=== PATIENT | female | born 1965 | race Caucasian/White ===

== ENCOUNTER 2017-06-24 17:32 | Outpatient (RCR) | payer OTHER, SELFPAY ==
--- NOTE | 2017-06-24 18:05 | HP.PTEVAL_ITS ---
Patient's Visit Information ALCIDES RUIZ is a 51 year old F referred to Physical Therapy by Francisco Cowan with a diagnosis of vertigo. Date of Evaluation: 06/24/17 Physical Therapist: Blue Crenshaw DPT, OC - Visit Plan Frequency: 1x/Week Duration: 2-4 Weeks Plan: weekly x 2-4 for positional treatment and ex - Subjective Subjective: Vertigo for a few years on and off. This episode going on two months. It is spinning and lightheaded. Much of time. Lying down makes it worse, reasding paper makes it worse. Getting up from lying or looking up. Spinning lasts a couple minutes. Feels goofy for a while and has to squint eyes after. otherwise feels pretty good. Works third shift, moving is a problem. 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 One house all night up and about. Off one time a couple months ago for dizzyness. Hobbies include walking and swimming and chores are all interrupted. - Objective c/s arom WFL. + R hallpike with up torsional nystagmus. treated with R Doc. - HD after. - Goals Goal 1:: abolish dizzyness to sleep better and function. Goal Time Frame: 2-4 Weeks - Rehabilitation Potential Physical Therapy Diagnosis: R post canal BPPV Rehabilitation Potential: Good - Anticipated Interventions Patient/Client Instruction: Educate patient on: Condition Other: decrease dizzyness Comment: positional treat and ex. Other: to abolish dizzyness. Thank you for the opportunity to evaluate your patient. For Medicare and Medicare HMO plans, please review the plan of care and approve it. It will need to be FAXED BACK to us at [phone] for Medicare purposes. Please let me know if there are questions or concerns regarding this plan of care. Physician Signature: Date:
--- NOTE | 2017-07-01 15:20 | HP.PTDCSUM ---
HP - PT D/C Summary It has been my pleasure to treat ALCIDES RUIZ under orders from Francisco Cowan, for the diagnosis of vertigo for a total of 1 visit(s). Discharge Date: 07/01/17 Please see the following information for a summary of their discharge status. - Subjective Subjective: Pt cancelled appointment stating she has not had any vertigo lately and does not need more therapy. - Objective Objective/Function: Pt cancelled her f/u stating that she is not having any more problems with the vertigo. - Goals Goal 1:: abolish dizzyness to sleep better and function. Goal Progress: Goal Met - Plan Plan: D/C - D/C Information Discharge Comments: Pt cancelled f/u as she is not having vertigo any longer. If there are questions or concerns regarding this patient's physical therapy, please feel free to call me at [phone]. Thank you for the referral of this patient. Sincerely, Blue Crenshaw, DPT, OC
== END 2017-06-24 19:00 | disposition home or self-care (01) ==
LOC: PT 17:32
PROVIDERS: Family Provider Family Medicine; PCP Family Medicine; Visit Provider Physician Assistant
DX: R42 Dizziness and giddiness (principal)
CPT/HCPCS: 97161

== ENCOUNTER 2018-07-18 03:36 | Emergency (ER) | payer OTHER, SELFPAY ==
[2018-07-18 03:37] VITALS: BP 170/74; PULSE 90; RESP 16; RESP 18; TEMP 36.3; O2SAT 99; BMI 41.1
--- NOTE | 2018-07-18 03:52 | CT_ITS ---
STUDY: CT ABDOMEN AND PELVIS WITHOUT CONTRAST REASON FOR EXAM: Female, 52 years old. Right flank pain and leukocytosis RADIATION DOSAGE (If Supplied By Facility): CTDIvol = ( 24.09 ) mGy, DLP = ( 1251.61 ) mGycm TECHNIQUE: Transaxial images were obtained from the dome of the diaphragm to the symphysis pubis without oral contrast, and without intravenous contrast. Sagittal and coronal images were reconstructed. Individualized dose optimization techniques were used for this CT. COMPARISON: None. FINDINGS: The visualized lung bases are unremarkable. The visualized portions of the heart are within normal limits. Small hiatal hernia. Hepatomegaly. The gallbladder is contracted. Normal spleen. Normal pancreas. Normal bilateral adrenal glands. 10 mm stone in the proximal right ureter at the level of the ureteropelvic junction with changes of mild acute obstructive uropathy. Small bilateral nonobstructing renal stones. Normal visualized stomach. Normal small intestine. There are multiple colonic diverticula consistent with diverticulosis. The appendix is visualized and appears normal. Normal abdominal aorta. Normal inferior vena cava. Normal retroperitoneum. Normal urinary bladder. Retroverted uterus. Normal abdominal wall. Normal osseous structures. CT/Abdomen/Pelvis without Cont IMPRESSION: 10 mm stone in the proximal right ureter at the level of the ureteropelvic junction with changes of mild acute obstructive uropathy. Electronically Signed: Ivan Styles MD at 5:51 EST Tel , Service support ,
[2018-07-18] MEDS: 0.9% Normal Saline 1,000 ML 1000 ML IV (04:07)
[2018-07-18] MEDS: Ondansetron 4 MG/2 ML Vial IV (04:07)
[2018-07-18] MEDS: Ketorolac 30 MG/ML Syringe IV (04:10)
[2018-07-18 04:58] VITALS: BP 155/66; PULSE 87; RESP 18; TEMP 36.8; O2SAT 95
[2018-07-18 05:09] LABS: Absolute Lymphocyte Count 2.39 X10^3/ul (0.83-4.51); Absolute Neutrophil Count 8.7 X10^3/uL (2.0-7.7); Basophil# 0.03 X10^3/uL; Basophil% 0.2 % (0-1); Eosinophil# 0.15 X10^3/uL; Eosinophils% 1.2 % (0-5); Hematocrit 42.6 % (37-47); Hemoglobin 13.8 g/dl (12.0-15.0); Lymphocyte # 2.39 X10^3/ul (4.0); Lymphocyte % 19.6 % (19-41); Mean Corp Hgb Conc 32.4 g/gl (32-36); Mean Corpuscular Hgb 30.1 pg (27.0-32.0); Mean Corpuscular Volume 92.8 fL (81-99); Mean Platelet Vol. 10.5 fl (6.2-12.0); Monocyte# 0.85 X10^3/uL; Neutrophil # 8.71 X10^3/uL (2.7-7.7); Neutrophil % 71.7 % (47-70); Platelet Count 352 K/mm3 (150-450); RBC Distribution Width SD 46.9 fl (35.1-43.9); Red Blood Count 4.59 M/mm3 (4.2-5.4); White Blood Count 12.2 K/mm3 (4.4-11.0)
[2018-07-18 05:10] LABS: POSITIVE COUNT NO; POSITIVE DIFFERENTIAL NO; POSITIVE MORPHOLOGY NO
[2018-07-18 05:21] LABS: ALB/GLOB Ratio 0.8 RATIO (0.9-2.4); AST(SGOT) 38 U/L (15-37); Alanine Aminotransfer ALT/SGPT 39 U/L (13-56); Albumin, Serum 3.6 g/dL (3.2-5.0); Alkaline Phosphatase 137 U/L (45-117); Anion Gap 10 (5-15); BUN 13 mg/dL (7-18); BUN/Creat Ratio 15.1 RATIO (10-20); Calcium,Total 9.2 mg/dL (8.5-10.1); Chloride 105 mmol/L (98-107); Creatinine, Serum 0.86 mg/dL (0.55-1.02); EST Glomerular Filtration Rate 74 mL/min (>60); Est Glom Filt Rate - Afr Amer 89 mL/min (>60); Estimated Creatinine Clearance 70.42 ml/min; Globulin 4.7 g/dL (2.2-4.2); Glucose 170 mg/dL (74-106); Lipase 354 U/L (73-393); Potassium 5.2 mmol/L (3.5-5.1); Protein, Total 8.3 g/dL (6.4-8.2); Sodium Level 139 mmol/L (136-145)
[2018-07-18 05:22] LABS: Pregnancy, Serum, hCG Quali. NEGATIVE Negative (0-9 Nonpreg)
[2018-07-18 06:16] LABS: Bacteria 0 SEEN /hpf (None Seen); Mucous, Urine 0 SEEN /hpf (<or=2+)
[2018-07-18 06:18] LABS: Glucose, Dipstick Normal (Normal); Ketone-Dipstick Negative (Negative); Leukocyte Esterase-Dipstick 25 /ul (Negative); Nitrite-Dipstick Negative (Negative); Occult Blood-Urine 250 /ul (Negative); Protein-Dipstick 30 mg/dl (Negative); Urine Bilirubin Dipstick Negative (Negative); Urine Urobilinogen Normal (Normal)
[2018-07-18 06:24] VITALS: BP 130/58; PULSE 78; RESP 16; TEMP 36.6; O2SAT 95
[2018-07-18 06:32] LABS: Color, Urine Yellow (Yellow); Urine Clarity Sl Cldy (Clear)
[2018-07-18 06:34] LABS: Red Blood Cells-Urine 50-100 SEEN /hpf (0-5); Squamous Epithelial Cells - UA 0-5 SEEN /hpf (5-10); White Blood Cells 0-5 SEEN /hpf (0-5)
[2018-07-18 06:35] LABS: Amorphous Sediment 1+ URATE
--- NOTE | 2018-07-18 06:45 | ED.VISSUMM ---
- ER Visit Summary Date of Service: 07/18/18 Chief Complaint: Right flank pain History of Present Illness: The patient is a 52 F with right flank pain. Symptoms started about a week ago and then got better. They recurred today. She had some hematuria. No fevers. Patient has a remote history of kidney stones but never had any type of procedures or instrumentation for them. She also has a history of diverticulitis and has been having some constipation. She is planning to have a colonoscopy on Friday. Physical Examination: Afebrile and vital signs unremarkable. Patient appears uncomfortable but not toxic or in distress. Heart regular rate. No respiratory distress. Right flank tender to palpation. Skin appears normal. Test Results: White count 12.2. Potassium 5.2 but hemolyzed. Glucose 170. Alkaline phosphatase 137 and AST 38. Lipase normal. HCG negative. Urinalysis does not show signs of infection. CT flank showed a 10 mm stone in the right proximal ureter with mild obstructive findings. Emergency Department Course and Treatment: Patient was treated with fluids, Zofran, and Toradol. Pain had improved to 4 out of 10. She would like to go home. I spoke with Dr. Chen and he said he can follow-up with her in the office on Friday. The patient was given a prescription for Flomax, Percocet, and Zofran. Precautions were discussed. Return for any issues. Follow-up on Friday. Patient was advised that she will not be able to have her colonoscopy on Friday and she should have the kidney stone addressed first. Treatment Plan: As above Disposition: Discharge Impression: 1. Right ureteral colic This note was generated with [employer] dictation software. It may contain incorrect words, spelling, and punctuation that were not noted in review of the chart prior to signing ED Disposition - Plan for ED Patient: Referrals: Ivan Florez MD [Primary Care Provider] -
--- NOTE | 2018-07-18 06:48 | ED.DCSUM_ITS ---
- ER Visit Summary Date of Service: 07/18/18 Chief Complaint: Right flank pain History of Present Illness: The patient is a 52 F with right flank pain. Symptoms started about a week ago and then got better. They recurred today. She had some hematuria. No fevers. Patient has a remote history of kidney s tones but never had any type of procedures or instrumentation for them. She also has a history of diverticulitis and has been having some constipation. She is planning to have a colonoscopy on Friday. Physical Examination: Afebrile and vital signs unremarkable. Patient appears uncomfortable but not toxic or in distress. Heart regular rate. No respiratory distress. Right flank tender to palpation. Skin appears normal. Test Results: White count 12.2. Potassium 5.2 but hemolyzed. Glucose 170. Alkaline phosphatase 137 and AST 38. Lipase normal. HCG negative. Urinalysis does not show signs of infection. CT flank showed a 10 mm stone in the right proximal ureter with mild obstructive findings. Emergency Department Course and Treatment: Patient was treated with fluids, Zofran, and Toradol. Pain had improved to 4 out of 10. She would like to go home. I spoke with Dr. Chen and he said he can follow-up with her in the office on Friday. The patient was given a prescription for Flomax, Percocet, and Zofran. Precautions were discussed. Return for any issues. Follow-up on Friday. Patient was advised that she will not be able to have her colonoscopy on Friday and she should have the kidney stone addressed first. Treatment Plan: As above Disposition: Discharge Impression: 1. Right ureteral colic This note was generated with [employer] dictation software. It may contain incorrect words, spelling, and punctuation that were not noted in review of the chart prior to signing ED Disposition - Plan for ED Patient: Referrals: Ivan Florez MD [Primary Care Provider] -
--- NOTE | 2018-07-18 06:48 | ED.DEP ---
ED Disposition - Plan for ED Patient: Instructions: ED Stone Renal W Colic Prescriptions: Oxycodone HCl/Acetaminophen [Percocet 5/325] 1 tab PO Q6H PRN PRN 3 Days #12 tab PRN Reason: Pain Ondansetron [Zofran Odt] 4 mg PO Q8H PRN PRN #10 tab PRN Reason: Nausea Tamsulosin HCl [Flomax] 0.4 mg PO DAILY #7 cap Referrals: Esteban Chen MD [STAFF PHYSICIAN] -
[2018-07-18 06:54] VITALS: BP 144/56; PULSE 81; RESP 16; O2SAT 94
--- NOTE | 2018-07-18 06:55 | ED.RN ---
THIS NURSE REVIEWED D/C INSTRUCTIONS WITH PT. PT VERBALIZED UNDERSTANDING OF INSTRUCTIONS. IV D/C. IV CATHETER INTACT. PT TOLERATED WELL. PT DENIES FURTHER NEEDS OR QUESTIONS AT THIS TIME
== END 2018-07-18 06:56 | disposition home or self-care (01) ==
PROVIDERS: Emergency Provider Emergency Medicine; Family Provider Family Medicine; PCP Family Medicine
DX: N23 Unspecified renal colic (principal); Z87.442 Personal history of urinary calculi; K59.00 Constipation, unspecified; E11.9 Type 2 diabetes mellitus without complications; Z72.0 Tobacco use
CPT/HCPCS: 74176; 80053; 81001; 83690; 84703; 85025; 96361; 96374; 96375; 99285; J7030; J2405

== ENCOUNTER 2018-07-22 12:59 | Day surgery (SDC) | payer OTHER, SELFPAY ==
--- NOTE | 2018-07-21 12:14 | HP.PCM_ITS ---
History and Physical Date of Admission: 07/22/18 I have ureteral stone. HPI: ALCIDES RUIZ is a 52 year-old female patient who was referred by KAMI CHESTER M.D. who is here for ureteral stone. The problem is on the right side. This is not her first kidney stone. She is currently having flank pain and back pain. She denies having groin pain, nausea, vomiting, fever, and chills. Pain is occuring on the right side. She has never had surgical treatment for calculi in the past. She has not caught a stone in her urine strainer since her symptoms began. The stone is at The ureteral pelvic junction. The stone is 10 mm . plan for Right Ureteroscopy and laser stone, and stent. ALLERGIES: None MEDICATIONS: Flomax Crestor Humalog Losartan Potassium Omeprazole Oxycodone Hcl Tresiba Flextouch U-100 100 unit/ml (3 ml) insulin pen Victoza 2-Leonard Zofran PSH: None PSH Notes: Had tubal , 1989. Rodney Streeter side fallopian tube removed. NON- PSH: Back Surgery (Unspecified) Colonoscopy Foot Surgery Tonsillectomy PMH: Calculus of kidney NON- PMH: Type 2 diabetes mellitus without complications Immunizations: None FAMILY HISTORY: Breast Cancer - Runs in Family Colon Cancer - Runs in Family Diabetes II - Runs in Family SOCIAL HISTORY: Marital Status: Preferred Language: Nigerian; Ethnicity: Not Or ; Race: White Current Smoking Status: Patient smokes. Tobacco Use Assessment Completed: Used Tobacco in last 30 days? Smoking cessation counseling was provided. Does not use smokeless tobacco. Social Drinker. Does not use drugs. Drinks 1 caffeinated drink per day. Has not had a blood transfusion. 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 REVIEW OF SYSTEMS: Constitutional: Patient denies fever, chills, weight loss, and weight gain. Eyes: Patient denies blurry vision, cataracts, and glaucoma. Ears, Nose, Mouth, Throat: Patient denies hearing loss, sinus infections, and sleep apnea. Cardiovascular: Patient denies chest pains, swollen ankles, irregular heartbeat, and pacemaker/defib. Respiratory: Patient denies shortness of breath, wheezing, oxygen, and cpap machine. Gastrointestinal: Patient denies abdominal pain, diarrhea, constipation, nausea, and vomiting. Genitourinary: Patient reports urinary retention, painful urination, blood in the urine, and history of stones. Patient denies frequent urination, get up at night to void, leakage of urine, frequent uti's, difficulty starting stream, weak stream/scanty, and bedwetting. Musculoskeletal: Patient denies back pain, sore muscles, and gout. Integumentary/Skin: Patient denies rash, skin cancer, and chronic itching. Neurological: Patient denies falling/unsteady, paralysis, and stroke/tia. Hematologic/Lymphatic: Patient denies abnormal bleeding, blood transfusion, swollen lymph nodes, deep venous thrombosis, and pulmonary embolism. VITAL SIGNS: 07/20/2018 01:37 PM Weight 245 lb / 111.13 kg Height 65 in / 165.1 cm BP 134/66 mmHg BMI 40.8 kg/m? - BMI Counseling was provided. MULTI-SYSTEM PHYSICAL EXAMINATION: Constitutional: Well-nourished. No physical deformities. Normally developed. Good grooming. Neck: Neck symmetrical, not swollen. Normal tracheal position. Respiratory: No labored breathing, no use of accessory muscles. Cardiovascular: Normal temperature, normal extremity pulses, no swelling, no varicosities. Lymphatic: No enlargement of neck, axillae, groin. Skin: No paleness, no jaundice, no cyanosis. No lesion, no ulcer, no rash. Neurologic / Psychiatric: Oriented to time, oriented to place, oriented to person. No depression, no anxiety, no agitation. Gastrointestinal: No mass, no tenderness, no rigidity, non obese abdomen. Eyes: Normal conjunctivae. Normal eyelids. Ears, Nose, Mouth, and Throat: Left ear no scars, no lesions, no masses. Right ear no scars, no lesions, no masses. Nose no scars, no lesions, no masses. Normal hearing. Normal lips. Musculoskeletal: Normal gait and station of head and neck. 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 The possible need for further surgical procedures was discussed with the patient. The possible need for postoperative treatments including further surgical procedures, chemotherapy, immunotherapy, radiation therapy, and others was discussed with the patient. The possibility that this operative procedure might not to cure the underlying disease, that micrometastatic disease might already be present, and that this underlying disease might result in the of the patient was discussed. The general risks of the operative procedure and the perioperative period were discussed with the patient at length and in detail including swelling, pain, nausea, vomiting, fever, chills, infection, wound infection, sepsis, renal failure, internal or external bleeding, intraoperative bowel, organ or vascular injuries, postoperative formation of scar tissue, the need for blood transfusions, deep venous thrombosis or blood clots, pulmonary embolus, pneumonia, respiratory failure, heart attack, stroke, he and others. All of the patient's questions were answered and he voiced an understanding of these risks, benefits and possible complications. The patient gave fully informed consent to proceed with the procedure. Notes: plan for right ureteroscopy and laser stone and stent.
[2018-07-22] VITALS (7 sets, daily range): BP systolic 121–154; BP diastolic 63–79; PULSE 61–79; RESP 16; TEMP 36.2–36.8; O2SAT 94–100; BMI 40.9
[2018-07-22 13:40] LABS: Bedside Glucose 159 mg/dL (70-110)
[2018-07-22] MEDS: Cefazolin 2 GM in 0.9% Normal Saline 100 ML IV (14:29)
[2018-07-22] MEDS: Ketorolac 15 MG/ML Vial IV (14:36)
--- NOTE | 2018-07-22 14:36 | DCINST_ITS ---
Discharge Diet: Light diet - advance as tolerated Discharge Activity: Return to Normal Activity Call your doctor if your incision/area has: Continuous Slow Oozing, Sudden Increased Bleeding, Increased Pain/ Swelling, Increased Redness Call your doctor if you observe: Fever of 101 or Higher Suture Line Care: Avoid Pulling/Pushing, Avoid Pinching/Bending Instructions: Treating Kidney Stones: Ureteroscopic Stone Removal, Ureteral Stents Allergies/Adverse Reactions: Allergies lansoprazole [From Prevacid] Allergy (Verified 07/22/18 13:14) Rash Medications to take at Discharge Insulin Lispro [Humalog] 15 unit SC BREAKFAST 01/21/17 Insulin Lispro [Humalog] 25 unit SC DINNER 01/21/17 Insulin Lispro [Humalog] 25 unit SC LUNCH 01/21/17 Losartan Potassium 25 mg PO DAILY 01/21/17 Insulin Degludec [Tresiba Flextouch U-100] 65 units SQ DAILY 07/18/18 Liraglutide [Victoza 2-Leonard] 1.8 mg SQ DAILY 07/18/18 Ondansetron [Zofran Odt] 4 mg PO Q8H PRN PRN #10 tab 07/18/18 Rosuvastatin Calcium [Crestor] 10 mg PO DAILY 07/18/18 Tamsulosin HCl [Flomax] 0.4 mg PO DAILY #7 cap 07/18/18 Omeprazole [Prilosec] 20 mg PO DAILY 07/21/18 Acetaminophen [Tylenol Extra Strength] 500 mg PO Q4H PRN PRN #20 tablet 07/22/18 Ibuprofen 600 mg PO Q6H PRN PRN #20 tablet 07/22/18 Primary Care Physician: Ivan Florez MD [Primary Care Provider] - Test Results: Test results from this visit will be discussed in further detail at your follow- up appointment, if applicable. Please Follow Up With: Esteban Chen MD When: please call to make an appointment.
[2018-07-22] MEDS: Lubricating Jelly 60 GM Tube 30 GM TOPICAL (14:45)
--- NOTE | 2018-07-22 15:19 | PCM.OPRPT ---
Report of Operation Date of Procedure: 07/22/18 Pre-Operative Diagnosis: Right renal calculi Post-Operative Diagnosis: Same Surgery/Procedure Performed:: Cystoscopy, balloon dilation of the right ureter, right ureteroscopy, right retrograde pyelogram, laser lithotripsy of a stone in the right kidney. Interpretation of retrograde pyelogram. Placement of the right stent. Description of Surgical Findings:: 52-year-old female who presented to the office from the outside hospital with an obstructing stone in the proximal ureter and up in the kidney saw the patient in the office recommend we proceed with laser lithotripsy laser the stone little tiny pieces. 52-year-old female taken back to the operating at the smooth induction of general anesthesia she was placed supine on the table and then a dorsolithotomy position, the vaginal area and urethra were all prepped and draped in usual sterile fashion, went into the bladder with a 21 Colombian rigid cystourethroscope, the entire length of the urethra was normal the bladder was slightly tilted down with a slight cystocele but otherwise normal no tumors or stones seen within the bladder I then cannulated the right ureter orifice with a Glidewire advanced this up to the kidney over the Glidewire I then balloon dilated the right ureteral orifice. Used a 10 cc syringe and 1 cc of contrast to balloon dilate the right ureteral orifice. I then went up into the right ureter and encountered the stone that was in the proximal ureter but migrated back up into the midpole of the right kidney I then used a 400 ?m laser fiber and laser the stone little tiny pieces this took quite some time because of quite a large stone in an quite hard. After lasering the stone successfully to swallow fragments that all should pass I did a retrograde pyelogram could see the delineation of the kidney no damage or injury to the kidney or ureter advance a wire through the ureteroscope was a 0.035 wire. Once the wires in place then I backloaded off the wire with the ureteroscope and then over the wire I placed a stent there was a 4.5 Colombian by 26 cm stent left the string of the stent for easy extraction in the near future patient's bladder was drained she was taken of anesthesia and taken back to PACU good condition she will follow-up in a week to remove the stent with an x-ray. Type of Anesthesia:: General Drains: stent right side - Admit VTE Documentation VTE Present on Admission: No VTE Mechan Device Prophylaxis: SCD's
[2018-07-22 15:41] LABS: Bedside Glucose 130 mg/dL (70-110)
== END 2018-07-22 17:29 | disposition home or self-care (01) ==
LOC: SDC 13:00 → AC 13:02
PROVIDERS: Family Provider Family Medicine; PCP Family Medicine; Referring Provider Urology; Visit Provider Urology
PROC: 0TJ98ZZ Inspection of Ureter, Via Natural or Artificial Opening Endoscopic (ICD-10-PCS; CPT 52352; principal; 2018-07-22 14:45)
DX: N20.1 Calculus of ureter (principal); E11.9 Type 2 diabetes mellitus without complications; K57.30 Diverticulosis of large intestine without perforation or abscess without bleeding; K21.9 Gastro-esophageal reflux disease without esophagitis; F17.210 Nicotine dependence, cigarettes, uncomplicated
CPT/HCPCS: 52353; 76000; 82962; J7120; C1769; J2405

== ENCOUNTER → 2018-07-27 13:47 | Outpatient (CLI) | payer OTHER, SELFPAY ==
[2018-07-22 13:15] VITALS: BMI 40.9
--- NOTE | 2018-07-27 13:55 | RAD_ITS ---
STUDY: X-RAY - ABDOMEN/PELVIS REASON FOR EXAM: Female, 52 years old. Kidney stone TECHNIQUE: Two AP supine views of the abdomen and pelvis. COMPARISON: CT dated 07/18/2018 FINDINGS: There is a right ureteral stent in place. There are subcentimeter calcifications overlying the lower pole of the right kidney which likely represent renal stones. There is no bowel obstruction. There is air and stool to the level of the rectum. The visualized osseous structures are within normal limits. RAD/Abdomen Single View IMPRESSION: Subcentimeter calcifications overlying the lower pole the right kidney which likely represent renal stones. Right ureteral stent in place. No bowel obstruction. Electronically Signed: Raza Cook, at 14:36 EST Tel , Service support ,
== END ==
LOC: RAD 13:47
PROVIDERS: Family Provider Family Medicine; PCP Family Medicine; Referring Provider Nurse Practitioner Adult Health; Visit Provider Nurse Practitioner Adult Health
DX: N20.0 Calculus of kidney (principal)
CPT/HCPCS: 74018

== ENCOUNTER 2018-07-27 20:50 | Emergency (ER) | payer OTHER, SELFPAY ==
[2018-07-22 13:15] VITALS: BMI 40.9
[2018-07-27 20:52] VITALS: BP 166/89; PULSE 90; RESP 18; TEMP 37.2; O2SAT 99; BMI 41.3
--- NOTE | 2018-07-27 21:03 | CT_ITS ---
STUDY: CT ABDOMEN AND PELVIS WITHOUT CONTRAST REASON FOR EXAM: Female, 52 years old. Kidney stone RADIATION DOSAGE (If Supplied By Facility): CTDIvol = ( 24.18 ) mGy, DLP = ( 1268.52 ) mGycm TECHNIQUE: Transaxial images were obtained from the dome of the diaphragm to the symphysis pubis without oral contrast, and without intravenous contrast. Sagittal and coronal images were reconstructed. Individualized dose optimization techniques were used for this CT. COMPARISON: July 18, 2018 FINDINGS: The visualized lung bases are unremarkable. The visualized portions of the heart are within normal limits. Normal liver. Normal gallbladder and extrahepatic biliary system. Normal spleen. Normal pancreas. Normal bilateral adrenal glands. There are now 3 stones in the right kidney up to 5 mm likely from the previously noted stone at the right UPJ which has been fragmented. Right hydronephrosis with right hydroureter Stable nonobstructing 3 mm stone in the left kidney. Small hiatal hernia. Normal small intestine. Mild diverticulosis of the colon. The appendix is visualized and appears normal. Normal abdominal aorta. Normal inferior vena cava. Normal retroperitoneum. Normal urinary bladder. Normal uterus. Normal abdominal wall. Normal osseous structures. CT/Abdomen/Pelvis without Cont IMPRESSION: Small hiatal hernia. Mild colonic diverticulosis. Bilateral renal calculi. Right hydronephrosis and hydroureter. No obstructive right ureteral stone. Electronically Signed: Dayton Gloria DO at 22:22 EST Tel [phone], Service support ,
[2018-07-27] MEDS: 0.9% Normal Saline 1,000 ML 250 ML IV (21:24)
[2018-07-27] MEDS: Ondansetron 4 MG/2 ML Vial IV (21:24)
[2018-07-27] MEDS: Morphine 4 MG/ML Syringe IV (21:24)
[2018-07-27 21:34] LABS: Absolute Lymphocyte Count 2.72 X10^3/ul (0.83-4.51); Absolute Neutrophil Count 8.1 X10^3/uL (2.0-7.7); Basophil# 0.03 X10^3/uL; Basophil% 0.3 % (0-1); Eosinophils% 2.5 % (0-5); Hematocrit 44.5 % (37-47); Hemoglobin 14.1 g/dl (12.0-15.0); Lymphocyte # 2.72 X10^3/ul (4.0); Lymphocyte % 22.9 % (19-41); Mean Corp Hgb Conc 31.7 g/gl (32-36); Mean Corpuscular Hgb 30.5 pg (27.0-32.0); Mean Corpuscular Volume 96.1 fL (81-99); Mean Platelet Vol. 10.2 fl (6.2-12.0); Monocyte# 0.72 X10^3/uL; Monocyte% 6.1 % (0-10); Neutrophil # 8.09 X10^3/uL (2.7-7.7); Neutrophil % 67.9 % (47-70); Platelet Count 349 K/mm3 (150-450); RBC Distribution Width CV 13.8 % (11.6-14.6); RBC Distribution Width SD 48.1 fl (35.1-43.9); Red Blood Count 4.63 M/mm3 (4.2-5.4); White Blood Count 11.9 K/mm3 (4.4-11.0)
[2018-07-27 21:35] LABS: POSITIVE COUNT NO; POSITIVE DIFFERENTIAL NO; POSITIVE MORPHOLOGY NO
[2018-07-27 21:48] LABS: Anion Gap 9 (5-15); BUN 13 mg/dL (7-18); Calcium,Total 8.6 mg/dL (8.5-10.1); Chloride 106 mmol/L (98-107); Creatinine, Serum 0.93 mg/dL (0.55-1.02); EST Glomerular Filtration Rate 68 mL/min (>60); Est Glom Filt Rate - Afr Amer 82 mL/min (>60); Estimated Creatinine Clearance 65.12 ml/min; Glucose 207 mg/dL (74-106); Potassium 4.1 mmol/L (3.5-5.1); Sodium Level 137 mmol/L (136-145)
[2018-07-27 22:33] LABS: Color, Urine Yellow (Yellow); Glucose, Dipstick Normal (Normal); Ketone-Dipstick Negative (Negative); Leukocyte Esterase-Dipstick 100 /ul (Negative); Nitrite-Dipstick Negative (Negative); Occult Blood-Urine 250 /ul (Negative); Protein-Dipstick 100 mg/dl (Negative); Urine Bilirubin Dipstick Negative (Negative); Urine Clarity Cloudy (Clear); Urine Urobilinogen Normal (Normal)
[2018-07-27 22:40] LABS: Squamous Epithelial Cells - UA 0-5 SEEN /hpf (5-10)
[2018-07-27 22:41] LABS: Hyaline Cast 0-5 SEEN /lpf (0-5)
[2018-07-27 22:43] LABS: Bacteria RARE /hpf (None Seen); Mucous, Urine 1+ /hpf (<or=2+); White Blood Cells 10-25 SEEN /hpf (0-5)
[2018-07-27 22:44] LABS: Red Blood Cells-Urine 50-100 SEEN /hpf (0-5)
--- NOTE | 2018-07-27 23:11 | ED.DCSUM_ITS ---
- ER Visit Summary Date of Service: 07/27/18 Chief Complaint: Flank pain History of Present Illness: The patient is a [address] Chen and Dr. Florez. Patient had a right ureteral stent placed [address] Chen. The stent was removed by the nurse practitioner today. Patient reports appro ximately 2 hours ago she had the abrupt onset of right flank pain that is similar to the pain she had with kidney stones. She describes a sharp pains 10- 10 severity. Is worsened by nothing relieved by nothing. She had nausea without vomiting. No diarrhea. She has had dysuria and hematuria. Physical Examination: Vitals: Stable. Afebrile. General: Well-nourished and well-developed. Head: Normocephalic atraumatic. Neck: Supple, no lymphadenopathy. No JVD. Nontender. Cardiovascular: Regular rate and rhythm. No murmurs. Respiratory: No respiratory distress. Clear to auscultation bilaterally. Abdominal: Soft, nontender, nondistended, normal bowel sounds. No guarding, rebound, or peritoneal signs. Back: Nontender. Extremities: Nontender, no edema. Skin: Normal color, no rash. Neurologic: Alert and oriented ?3. Cranial nerves II through XII are intact. Normal strength and sensation. Psych: Normal affect. Test Results: CT flank shows bilateral renal calculi. She has right hydro ureter/nephrosis. No obstructing stone. CBC is more for a white count of 11.9. Chem-7 more for glucose 207. UA shows leukocytes, blood, 10-25 white blood cells, 50-100 red blood cells, and rare bacteria. Emergency Department Course and Treatment: Patient had an IV placed. She was given morphine and Zofran IV. States that when she went into urinate she passed a significant amount of foreign material that was the size of sand and her symptoms have essentially resolved. Treatment Plan: Patient was discussed with Dr. Chen. She will be discharged with Percocet. Her urine was sent for culture. She is instructed to follow-up Dr. Chen in a week for another exam. Return to the emergency department for any worsening symptoms. Disposition: To home in improved and stable condition. Impression: 1. Right flank pain. 2. 5 days status post right ureteral stent. This note was generated with [employer] software. It may contain incorrect words, spelling, and punctuation that were not noted in review of the chart prior to signing ED Disposition - Plan for ED Patient: Disposition: Home or Assisted Living Instructions: ED Stone Renal W Colic Prescriptions: Oxycodone HCl/Acetaminophen [Percocet 5/325] 1 tablet PO Q6H PRN PRN 3 Days #12 tablet PRN Reason: Pain Ondansetron [Zofran Odt] 4 mg PO Q8H PRN PRN #10 tablet PRN Reason: Nausea Referrals: Esteban Chen MD [STAFF PHYSICIAN] - 1 Week
[2018-07-27] MEDS: Ibuprofen 400 MG Tablet 800 MG PO (23:40)
[2018-07-27] MEDS: oxyCODONE 5 MG Tablet PO ×2 (23:41)
[2018-07-27] MEDS: Ondansetron ODT 4 MG Tablet PO ×2 (23:42)
[2018-07-27 23:46] VITALS: BP 125/56; PULSE 80; RESP 18; O2SAT 95
== END 2018-07-27 23:46 | disposition home or self-care (01) ==
LOC: ED 21:08
PROVIDERS: Emergency Provider Emergency Medicine; Family Provider Family Medicine; PCP Family Medicine
DX: R10.9 Unspecified abdominal pain (principal); N13.2 Hydronephrosis with renal and ureteral calculous obstruction; Z98.890 Other specified postprocedural states; E11.9 Type 2 diabetes mellitus without complications; F17.210 Nicotine dependence, cigarettes, uncomplicated; Z87.442 Personal history of urinary calculi
CPT/HCPCS: 74176; 80048; 81001; 85025; 87086; 87088; 96361; 96374; 96375; 99284; J7030; A4216; J2405

== ENCOUNTER → 2018-12-30 | Outpatient (CLI) | payer OTHER, SELFPAY ==
[2019-01-03 03:05] LABS: Clam <0.10 kU/L (Class 0); Codfish <0.10 kU/L (Class 0); Corn <0.10 kU/L (Class 0); Egg, White 0.19 kU/L (Class 0/I); Milk (Cow) <0.10 kU/L (Class 0); Peanut <0.10 kU/L (Class 0); SCALLOP <0.10 kU/L (Class 0); Shrimp <0.10 kU/L (Class 0); Soybean <0.10 kU/L (Class 0); Walnut, (Food) <0.10 kU/L (Class 0); Wheat <0.10 kU/L (Class 0)
[2019-01-03 07:43] LABS: SESAME SEED <0.10 kU/L (Class 0)
[2019-01-03 12:59] LABS: Immunoglobulin E 27 IU/mL (6-495)
[2019-01-04 12:07] LABS: Alternaria tenuis <0.10 kU/L (Class 0); Ash, White <0.10 kU/L (Class 0); Aspergillus fumigatus <0.10 kU/L (Class 0); Bermuda Grass <0.10 kU/L (Class 0); Birch <0.10 kU/L (Class 0); Black Walnut <0.10 kU/L (Class 0); Cat Hair / Dander,Stand <0.10 kU/L (Class 0); Cedar, Mountain <0.10 kU/L (Class 0); Cladosporium herbarum <0.10 kU/L (Class 0); Cockroach, American <0.10 kU/L (Class 0); Cottonwood <0.10 kU/L (Class 0); D farinae Mite <0.10 kU/L (Class 0); D pteronyssinus <0.10 kU/L (Class 0); Dog Epithelia <0.10 kU/L (Class 0); Elm, American White <0.10 kU/L (Class 0); Immunoglobulin E 29 IU/mL (6-495); Maple/Box Elder <0.10 kU/L (Class 0); Mulberry, White <0.10 kU/L (Class 0); Oak, White <0.10 kU/L (Class 0); Pecan <0.10 kU/L (Class 0); Penicillium Notatum <0.10 kU/L (Class 0); Pigweed, Rough <0.10 kU/L (Class 0); Ragweed, Short/Common <0.10 kU/L (Class 0); Russian Thistle <0.10 kU/L (Class 0); Sheep Sorrel <0.10 kU/L (Class 0); Sycamore, American <0.10 kU/L (Class 0); Timothy Grass <0.10 kU/L (Class 0)
[2019-01-04 17:30] LABS: Mouse Urine <0.10 kU/L (Class 0)
== END | disposition home or self-care (01) ==
LOC: LAB 09:47
PROVIDERS: Family Provider Family Medicine; PCP Family Medicine; Referring Provider Otolaryngology Otolaryngology/Facial Plastic Surgery; Visit Provider Otolaryngology Otolaryngology/Facial Plastic Surgery
DX: T78.40XA Allergy, unspecified, initial encounter (principal)
CPT/HCPCS: 36415; 82785; 86003

== ENCOUNTER 2019-05-01 22:49 | Emergency (ER) | payer OTHER, SELFPAY ==
[2019-05-01 22:50] VITALS: BP 161/81; PULSE 88; RESP 16; TEMP 36.8; O2SAT 99; BMI 41.2
--- NOTE | 2019-05-01 23:13 | ED.DCSUM_ITS ---
- ER Visit Summary Date of Service: 05/01/19 Chief Complaint: Abdominal pain History of Present Illness: The patient is a 53 F presenting with abdominal pain. She states this started yesterday. She has pain in her bilateral lower quadrants worse on the left. She has history of previous diverticulitis and states this feels similar. She has nausea with no vomiting. She has had constipation. She denies fever or chills. Denies chest pain or shortness of breath. Denies other complaints. Physical Examination: Vitals are stable. Patient is afebrile. Alert no acute distress. HEENT exam is unremarkable. Neck is supple. Lungs are clear and equal bilaterally. Heart is regular rate and rhythm. Abdomen is soft LLQ tenderness with no rebound or guarding Extremities are unremarkable. Skin is warm and dry. No focal neurologic deficit. Remainder of exam is unremarkable. Emergency Department Course and Treatment: Patient was given IV fluids, morphine, Zofran. CBC shows white count 11.4. Chemistries show glucose 176. Alk phos 127, AST 11. Urinalysis unremarkable. CT abdomen pelvis shows diverticulitis with possible development of early abscess within the superior aspect of the sigmoid at the level of the wall, not drainable at this time. Clinical correlation recommended and if indicated, follow-up CT to evaluate progression recommended. On reevaluation, patient is feeling improved and would prefer discharge home. Discussed with Dr. Rodriguez. Patient will follow-up as an outpatient. She is given Cipro, Flagyl. She is advised to return to ED if she has worsening complaints. Disposition: Discharge home Impression: Diverticulitis This note was generated with [employer] dictation software. It may contain incorrect words, spelling, and punctuation that were not noted in review of the chart prior to signing ED Disposition - Plan for ED Patient: Instructions: Diverticulitis Prescriptions: Ciprofloxacin [Cipro] 500 mg PO BID #14 tab Prescription Printed metroNIDAZOLE [Flagyl] 500 mg PO Q8H #21 tab Prescription Printed Hydrocodone Bitart/Apap 5-325 [[place] 5MG-325MG] 1 tab PO Q6H PRN PRN 3 Days #10 tab PRN Reason: Pain Prescription Printed Referrals: Rodríguez Rodriguez MD [STAFF PHYSICIAN] - Ivan Florez MD [Primary Care Provider] -
[2019-05-01] MEDS: Morphine 4 MG/ML Syringe IV (23:51)
[2019-05-01] MEDS: Ondansetron 4 MG/2 ML Vial IV (23:51)
[2019-05-01 23:52] LABS: Absolute Lymphocyte Count 2.25 X10^3/uL (0.83-4.51); Absolute Neutrophil Count 8.2 X10^3/uL (2.0-7.7); Basophil# 0.03 X10^3/uL; Basophil% 0.3 % (0-1); Eosinophil# 0.22 X10^3/uL; Eosinophils% 1.9 % (0-5); Hemoglobin 13.3 g/dL (12.0-15.0); Lymphocyte # 2.25 X10^3/ul (4.0); Lymphocyte % 19.8 % (19-41); Mean Corp Hgb Conc 33.3 g/dL (32-36); Mean Corpuscular Hgb 30.4 pg (27.0-32.0); Mean Corpuscular Volume 91.5 fL (81-99); Mean Platelet Vol. 10.1 fl (6.2-12.0); Monocyte# 0.64 X10^3/uL; Monocyte% 5.6 % (0-10); NRBC Flagged by Analyzer 0 % (0-5); Neutrophil # 8.18 X10^3/uL (2.7-7.7); Platelet Count 316 K/mm3 (150-450); RBC Distribution Width CV 13.2 % (11.6-14.6); RBC Distribution Width SD 45.1 fl (35.1-43.9); Red Blood Count 4.37 M/mm3 (4.2-5.4); White Blood Count 11.4 K/mm3 (4.4-11.0)
[2019-05-01 23:58] LABS: Red Blood Cells-Urine 0 SEEN /hpf (0-5)
[2019-05-02 00:07] LABS: ALB/GLOB Ratio 0.8 RATIO (0.9-2.4); AST(SGOT) 11 U/L (15-37); Alanine Aminotransfer ALT/SGPT 21 U/L (13-56); Albumin, Serum 3.3 g/dL (3.2-5.0); Alkaline Phosphatase 127 U/L (45-117); Anion Gap 5 (5-15); BUN 10 mg/dL (7-18); BUN/Creat Ratio 13.2 RATIO (10-20); Calcium,Total 8.9 mg/dL (8.5-10.1); Chloride 108 mmol/L (98-107); Creatinine, Serum 0.76 mg/dL (0.55-1.02); EST Glomerular Filtration Rate 85 mL/min (>60); Est Glom Filt Rate - Afr Amer 103 mL/min (>60); Globulin 3.9 g/dL (2.2-4.2); Glucose 176 mg/dL (74-106); Lipase 184 U/L (73-393); Potassium 4.2 mmol/L (3.5-5.1); Protein, Total 7.2 g/dL (6.4-8.2); Sodium Level 140 mmol/L (136-145)
[2019-05-02 00:14] LABS: Color, Urine Yellow (Yellow); Glucose, Dipstick Normal (Normal); Ketone-Dipstick Negative (Negative); Occult Blood-Urine 10 /ul (Negative); Specific Gravity, Urine 1.015 (1.002-1.030); Urine Bilirubin Dipstick Negative (Negative); Urine Clarity Clear (Clear)
[2019-05-02 00:15] LABS: Leukocyte Esterase-Dipstick 25 /ul (Negative); Nitrite-Dipstick Negative (Negative); Protein-Dipstick Negative (Negative); Urine Urobilinogen Normal (Normal); Urine pH 6.5 (5.0 - 8.0)
[2019-05-02 00:16] LABS: Bacteria RARE /hpf (None Seen); Mucous, Urine RARE /hpf (<or=2+); Squamous Epithelial Cells - UA 0-5 SEEN /hpf (5-10); White Blood Cells 0-5 SEEN /hpf (0-5)
[2019-05-02 02:22] VITALS: BP 131/59; PULSE 75; RESP 18; O2SAT 97
--- NOTE | 2019-05-02 02:43 | ED.DEP ---
ED Disposition - Plan for ED Patient: Instructions: Diverticulitis Prescriptions: Ciprofloxacin [Cipro] 500 mg PO BID #14 tablet metroNIDAZOLE [Flagyl] 500 mg PO Q8H #21 tablet Hydrocodone Bitart/Apap 5-325 [[place] 5MG-325MG] 1 tablet PO Q6H PRN PRN 3 Days #10 tablet PRN Reason: Pain Referrals: Ivan Florez MD [Primary Care Provider] - Rodríguez Rodriguez MD [STAFF PHYSICIAN] -
[2019-05-02] MEDS: Ciprofloxacin 500 MG Tablet PO (03:03)
[2019-05-02] MEDS: metroNIDAZOLE 500 MG Tablet PO (03:04)
[2019-05-02 03:07] VITALS: BP 136/66; PULSE 71; RESP 16; O2SAT 97
--- NOTE | 2019-05-02 23:10 | CT_ITS ---
We are attempting to reach an attending provider to discuss findings. An addendum with communication details will be sent when the communication is complete. STUDY: CT ABDOMEN AND PELVIS WITH CONTRAST REASON FOR EXAM: Female, 53 years old. Lower abdominal pain. RADIATION DOSAGE (If Supplied By Facility): CTDIvol = ( 20.40 ) mGy, DLP = ( 1255.67 ) mGycm TECHNIQUE: Transaxial images were obtained from the dome of the diaphragm to the symphysis pubis without oral contrast. Oral and amp; IV Gastrografin and amp; 100mL Isovue-370 was administered. Sagittal and coronal images were reconstructed. Individualized dose optimization techniques were used for this CT. COMPARISON: 07/27/2018. FINDINGS: There is mild posterior dependent atelectasis, remainder of the lung bases are clear. The visualized portions of the heart are within normal limits. Normal liver. Normal gallbladder and extrahepatic biliary system. Normal spleen. Normal pancreas. Normal bilateral adrenal glands. Normal right kidney. Normal left kidney. Minimal hiatal hernia versus a sequela previous surgery, otherwise normal visualized stomach. Normal small intestine. There is mild diverticulosis more so along the sigmoid. There is inflammatory change surrounding the sigmoid colon, axial images 19 through 100. There is a small lucency measuring approximately 2.1 cm at the superior aspect of the sigmoid which may indicate a subtle early abscess formation. The appendix is visualized and appears normal. There is diffuse atherosclerotic calcification of the abdominal aorta, without a demonstrated aneurysm. Normal inferior vena cava. Normal retroperitoneum. Normal urinary bladder. The uterus is retroflexed otherwise unremarkable. Normal abdominal wall. There are diffuse degenerative changes of the visualized lumbar spine. CT/Abdomen/Pelvis WITH Contrast IMPRESSION: Diverticulitis with possible development of early abscess within the superior aspect of the sigmoid at the level of the wall, not drainable at this time. Clinical correlation recommended and if indicated, follow-up CT to evaluate progression recommended. Electronically Signed: Jenny Cooper MD at 2:17 EST , Service support ,
== END 2019-05-02 03:08 | disposition home or self-care (01) ==
LOC: ED 23:15
PROVIDERS: Emergency Provider Emergency Medicine; Family Provider Family Medicine; PCP Family Medicine
DX: K57.92 Diverticulitis of intestine, part unspecified, without perforation or abscess without bleeding (principal); K59.00 Constipation, unspecified; E11.9 Type 2 diabetes mellitus without complications; Z72.0 Tobacco use; Z87.442 Personal history of urinary calculi
CPT/HCPCS: 74177; 80053; 81001; 83690; 85025; 96374; 96375; 99284; J7040; Q9967; A4216; J2405

== ENCOUNTER → 2020-06-26 14:40 | Outpatient (CLI) | payer OTHER, SELFPAY ==
--- NOTE | 2020-06-26 14:44 | CT_ITS ---
STUDY: CT ABDOMEN AND PELVIS WITHOUT CONTRAST REASON FOR EXAM: Female, 54 years old. ABD /FLANK PAIN, HX [place] RADIATION DOSAGE (If Supplied By Facility): CTDIvol = ( 14.80 ) mGy, DLP = ( 729.75 ) mGycm TECHNIQUE: Transaxial images were obtained from the dome of the diaphragm to the symphysis pubis without oral contrast, and without intravenous contrast. Sagittal and coronal images were reconstructed. Individualized dose optimization techniques were used for this CT. COMPARISON: Comparison is made with prior examination dated 05/02/2019. FINDINGS: The visualized lung bases are unremarkable. The visualized portions of the heart are within normal limits. Normal liver. Partially contracted gallbladder with possible sludge. Normal spleen. Normal pancreas. Normal bilateral adrenal glands. Punctate calcification in the posterior midpole calyx of the right kidney. There are 3 small nonobstructive intrarenal calculi in the lower pole calyx of the left kidney. There is a small hiatal hernia. Normal small intestine. There are scattered colonic diverticula consistent with diverticulosis. The appendix is visualized and appears normal. There is scattered atherosclerotic calcification of the abdominal aorta, without a demonstrated aneurysm. Normal inferior vena cava. Normal retroperitoneum. Normal urinary bladder. Normal abdominal wall. There are degenerative changes of the visualized lumbar spine. CT/Abdomen/Pelvis without Cont IMPRESSION: Stable small bilateral nonobstructive intrarenal calculi. Electronically Signed: Dennis Soria MD at 15:34 EST , Service support ,
== END ==
PROVIDERS: PCP Family Medicine; Referring Provider Nurse Practitioner Adult Health; Visit Provider Nurse Practitioner Adult Health
DX: R31.0 Gross hematuria (principal); N20.0 Calculus of kidney; R10.9 Unspecified abdominal pain
CPT/HCPCS: 74176

== ENCOUNTER 2020-07-15 13:36 | Emergency (ER) | payer OTHER, SELFPAY ==
[2020-07-15 13:36] VITALS: BP 161/77; PULSE 93; RESP 18; TEMP 36.7; O2SAT 97; BMI 42.3
--- NOTE | 2020-07-15 13:50 | CT_ITS ---
EXAM: CT ABDOMEN AND PELVIS WITH INTRAVENOUS CONTRAST CLINICAL INDICATION: LOWER ABD PAIN, HX DIVERTICULITIS TECHNIQUE: Helically acquired images were obtained of the abdomen and pelvis with intravenous contrast. This CT exam was performed using one or more of the following dose reduction techniques: automated exposure control, adjustment of the mA and/or kV according to patient size, and/or use of iterative reconstruction technique. This report was created using [employer] report generation technology. CONTRAST: IV 100mL Isovue-300 COMPARISON: 06/26/2020. FINDINGS: LOWER THORAX: Small hiatal hernia. Lung bases are clear. No cardiomegaly. No significant pericardial effusion. ABDOMEN: LIVER: Unremarkable. Homogeneous. No focal mass. GALLBLADDER AND BILE DUCTS: Unremarkable. No calcified gallstones. No gallbladder distention or wall edema. No intra- or extrahepatic biliary ductal dilation. PANCREAS: Unremarkable. No focal cystic or solid mass. SPLEEN: Unremarkable. Normal size without focal cystic or solid mass. ADRENALS: Unremarkable. No nodules. KIDNEYS AND URETERS: Unremarkable. Normal renal size and position. No hydronephrosis. STOMACH AND BOWEL: Wall thickening of the sigmoid colon with slight pericolonic stranding with a few scattered diverticula (image 88 series 2). No CT evidence of perforation or abscess. No stomach or bowel distention. PELVIS: APPENDIX: No evidence of acute appendicitis. BLADDER: Unremarkable. REPRODUCTIVE: Unremarkable as visualized. No mass. ABDOMEN and PELVIS: INTRAPERITONEAL SPACE: Unremarkable. No ascites or other fluid collection. No free air. BONES/JOINTS: Degenerative changes of the lumbar spine. No suspicious lytic or blastic abnormality. SOFT TISSUES: Unremarkable. No discrete abdominal or pelvic wall hernia. VASCULATURE: Mild atherosclerosis of the abdominal aorta. Abdominal aorta is non-dilated. LYMPH NODES: Unremarkable. No enlarged lymph nodes. CT/Abdomen/Pelvis W IV Cont ONLY IMPRESSION: Sigmoid colon diverticulitis or colitis. Electronically Signed: Kimani Boogie MD ([place]) at 15:06 EST , Service support ,
--- NOTE | 2020-07-15 13:51 | ED.VIS.GEN ---
History of Present Illness Chief Complaint: Abd Pain Informant: Patient Narrative: 54-year-old female with a history of sigmoid diverticulitis presents with lower abdominal pain and constipation since yesterday. No fevers. She has never had diverticular abscess or perforation. She states that she used to get flares several times per year but has not had one for at least 1 year. She is seeing Dr. Rodriguez in the past for this. She states that Cipro and Flagyl typically work well for her. - Past Medical History (1) Chronic back pain Status: Chronic (2) Chronic constipation Status: Chronic (3) Diabetes mellitus, type II Status: Chronic (4) Neuropathy Status: Chronic (5) Obesity (BMI 30-39.9) Status: Chronic Past Medical History - Allergies and Home Meds Allergies/Adverse Reactions: Allergies lansoprazole [From Prevacid] Allergy (Verified 07/15/20 13:38) Rash Primary Care Physician: Ivan Florez MD [Primary Care Provider] - Past Medical History: - - Diverticulitis Surgical History: - - Right salpingectomy, lumbar surgery ?2, right foot surgery, tonsillectomy. Smoking Status: Current every day smoker Drugs: None - Family History Maternal Family History: Reports: Diabetes Paternal Family History: Reports: Diabetes Review of Systems General: Denies: Chills, Fever, Sweats Eyes: Denies: Visual changes - bilaterally, Diplopia ENT: Denies: Rhinorrhea, Sore throat Cardiovascular: Denies: Chest pain, Palpitations Respiratory: Denies: Dyspnea, Cough, Dyspnea on exertion Gastrointestinal: Reports: Abdominal pain, Constipation. Denies: Nausea, Vomiting, Diarrhea, Melena, Hematochezia Genitourinary: Denies: Dysuria, Hematuria, Frequency Musculoskeletal: Denies: Back pain, Extremity Pain Skin: Denies: Rash, Wounds Neurological: Denies: Headache, Weakness, Numbness Physical Exam Vital Signs/Narrative: Vital Signs Temp Pulse Resp BP Pulse Ox 07/15/20 13:36 98.0 F 93 18 161/77 H 97 Inital Vital Signs reviewed: Yes General: Well nourished, Well developed, Obese, No Acute Distress Head: Normocephalic, Atraumatic Eyes: Perrl, EOMI ENT: Moist mucous membranes, No rhinorrhea Neck: Supple, Nontender Cardiovascular: Regular rate, Regular rhythm, No murmurs Respiratory: No distress, CTA bilaterally, Chest nontender Abdomen: Soft, Nondistended, Normal bowel sounds, Tender, Guarding, Rebound tenderness Back: Nontender, Normal Inspection Extremities: Nontender, No edema Skin: Normal color, No rash Neurological: Alert, Oriented x3, Cranial nerves II-XII grossly intact, Normal Strength, Normal Sensation Psychological: Normal affect, Normal Mood Diagnostic/Tx/Re-eval Clinical Impression(s) from Imaging Studies Abdomen/Pelvis CT 07/15/20 13:50 IMPRESSION: Sigmoid colon diverticulitis or colitis. Electronically Signed: Kimani Boogie MD ([place]) at 15:06 EST , Service support , Laboratory Last Values WBC 16.2 K/mm3 (4.4-11.0) H 07/15/20 13:45 RBC 4.65 M/mm3 (4.2-5.4) 07/15/20 13:45 Hgb 14.0 g/dL (12.0-15.0) 07/15/20 13:45 Hct 43.0 % (37-47) 07/15/20 13:45 MCV 92.5 fL (81-99) 07/15/20 13:45 MCH 30.1 pg (27.0-32.0) 07/15/20 13:45 MCHC 32.6 g/dL (32-36) 07/15/20 13:45 RDW Std Deviation 44.1 fl (35.1-43.9) H 07/15/20 13:45 RDW Coeff of Matt 13.1 % (11.6-14.6) 07/15/20 13:45 Plt Count 353 K/mm3 (150-450) 07/15/20 13:45 MPV 10.2 fl (6.2-12.0) 07/15/20 13:45 Immature Gran % (Auto) 0.700 % (0.0-0.9) 07/15/20 13:45 Neut % (Auto) 83.5 % (47-70) H 07/15/20 13:45 Lymph % (Auto) 9.4 % (19-41) L 07/15/20 13:45 [place] % (Auto) 5.1 % (0-10) 07/15/20 13:45 Eos % (Auto) 0.9 % (0-5) 07/15/20 13:45 Baso % (Auto) 0.4 % (0-1) 07/15/20 13:45 Absolute Neuts (auto) 13.5 X10^3/uL (2.0-7.7) H 07/15/20 13:45 Absolute Lymphs (auto) 1.53 X10^3/uL (0.83-4.51) 07/15/20 13:45 Nucleated RBC % 0 % (0-5) 07/15/20 13:45 Sodium 137 mmol/L (136-145) 07/15/20 13:45 Potassium 4.2 mmol/L (3.5-5.1) 07/15/20 13:45 Chloride 109 mmol/L (98-107) H 07/15/20 13:45 Carbon Dioxide 24.0 mmol/L (21.0-32.0) 07/15/20 13:45 Anion Gap 4 (5-15) L 07/15/20 13:45 BUN 11 mg/dL (7-18) 07/15/20 13:45 Creatinine 0.72 mg/dL (0.55-1.02) 07/15/20 13:45 Estim Creat Clear Calc 82.25 ml/min 07/15/20 13:45 Est GFR (MDRD) Af Amer 109 mL/min (>60) 07/15/20 13:45 Est GFR (MDRD) Non-Af 90 mL/min (>60) 07/15/20 13:45 BUN/Creatinine Ratio 15.2 RATIO (10-20) 07/15/20 13:45 Glucose 209 mg/dL (74-106) H 07/15/20 13:45 Calcium 8.7 mg/dL (8.5-10.1) 07/15/20 13:45 Total Bilirubin 0.20 mg/dL (0.20-1.00) 07/15/20 13:45 AST 14 U/L (15-37) L 07/15/20 13:45 ALT 30 U/L (13-56) 07/15/20 13:45 Alkaline Phosphatase 131 U/L (45-117) H 07/15/20 13:45 Total Protein 7.6 g/dL (6.4-8.2) 07/15/20 13:45 Albumin 3.4 g/dL (3.2-5.0) 07/15/20 13:45 Globulin 4.2 g/dL (2.2-4.2) 07/15/20 13:45 Albumin/Globulin Ratio 0.8 RATIO (0.9-2.4) L 07/15/20 13:45 Urine Color Yellow (Yellow) 07/15/20 14:59 Urine Clarity Sl. Cloudy (Clear) 07/15/20 14:59 Urine pH 6.0 (5.0 - 8.0) 07/15/20 14:59 Ur Specific [place] 1.010 (1.002-1.030) 07/15/20 14:59 Urine Protein Negative mg/dl (Negative) 07/15/20 14:59 Urine Glucose (UA) 50 mg/dl (Normal) H 07/15/20 14:59 Urine Ketones Negative mg/dl (Negative) 07/15/20 14:59 Urine Occult Blood Negative /ul (Negative) 07/15/20 14:59 Urine Nitrite Negative (Negative) 07/15/20 14:59 Urine Bilirubin Negative mg/dL (Negative) 07/15/20 14:59 Urine Urobilinogen Normal mg/dl (Normal) 07/15/20 14:59 Ur Leukocyte Esterase Negative /ul (Negative) 07/15/20 14:59 Urine RBC 0 SEEN /hpf (0-5) 07/15/20 14:59 Urine WBC 0 SEEN /hpf (0-5) 07/15/20 14:59 Ur Squamous Epith Cells 0-5 SEEN /hpf (5-10) 07/15/20 14:59 Urine Bacteria RARE /hpf (None Seen) 07/15/20 14:59 Urine Mucus 0 SEEN /hpf (<or=2+) 07/15/20 14:59 - Medical Decision Making Constantly elevated at 16. CT down pelvis demonstrates sigmoid diverticulitis without perforation or abscess. Patient has done well with Cipro and Flagyl in the past and would like to use that today. I will also write for some Percocet and Zofran. Patient given return instructions and notes understanding as well as follow-up. ED Disposition - Plan for ED Patient: Disposition: Home or Assisted Living Diagnosis: Diverticulitis Instructions: ED Diverticulitis Prescriptions: Ciprofloxacin [Cipro] 500 mg PO BID #20 tab Transmission Status: Pending to [facility] metroNIDAZOLE [Flagyl] 500 mg PO Q8H #30 tab Transmission Status: Pending to [facility] Oxycodone HCl/Acetaminophen [Percocet 5/325] 1 tablet PO Q6H PRN PRN 3 Days #12 tablet PRN Reason: Pain Transmission Status: Sent to [facility] Ondansetron [Zofran Odt] 4 mg PO Q6H PRN PRN #10 tab PRN Reason: Nausea Transmission Status: Pending to [facility] Referrals: Ivan Florez MD [Primary Care Provider] - As Needed
[2020-07-15 13:59] LABS: Absolute Lymphocyte Count 1.53 X10^3/uL (0.83-4.51); Absolute Neutrophil Count 13.5 X10^3/uL (2.0-7.7); Basophil# 0.07 X10^3/uL; Basophil% 0.4 % (0-1); Eosinophil# 0.14 X10^3/uL; Eosinophils% 0.9 % (0-5); Lymphocyte # 1.53 X10^3/ul (4.0); Lymphocyte % 9.4 % (19-41); Mean Corp Hgb Conc 32.6 g/dL (32-36); Mean Corpuscular Hgb 30.1 pg (27.0-32.0); Mean Corpuscular Volume 92.5 fL (81-99); Mean Platelet Vol. 10.2 fl (6.2-12.0); Monocyte# 0.82 X10^3/uL; Monocyte% 5.1 % (0-10); NRBC Flagged by Analyzer 0 % (0-5); Neutrophil # 13.52 X10^3/uL (2.7-7.7); Neutrophil % 83.5 % (47-70); Platelet Count 353 K/mm3 (150-450); RBC Distribution Width CV 13.1 % (11.6-14.6); RBC Distribution Width SD 44.1 fl (35.1-43.9); Red Blood Count 4.65 M/mm3 (4.2-5.4); White Blood Count 16.2 K/mm3 (4.4-11.0)
[2020-07-15 14:15] LABS: ALB/GLOB Ratio 0.8 RATIO (0.9-2.4); AST(SGOT) 14 U/L (15-37); Alanine Aminotransfer ALT/SGPT 30 U/L (13-56); Albumin, Serum 3.4 g/dL (3.2-5.0); Alkaline Phosphatase 131 U/L (45-117); Anion Gap 4 (5-15); BUN 11 mg/dL (7-18); BUN/Creat Ratio 15.2 RATIO (10-20); Calcium,Total 8.7 mg/dL (8.5-10.1); Chloride 109 mmol/L (98-107); Creatinine, Serum 0.72 mg/dL (0.55-1.02); EST Glomerular Filtration Rate 90 mL/min (>60); Est Glom Filt Rate - Afr Amer 109 mL/min (>60); Estimated Creatinine Clearance 82.25 ml/min; Globulin 4.2 g/dL (2.2-4.2); Glucose 209 mg/dL (74-106); Potassium 4.2 mmol/L (3.5-5.1); Protein, Total 7.6 g/dL (6.4-8.2); Sodium Level 137 mmol/L (136-145)
[2020-07-15 15:04] LABS: Mucous, Urine 0 SEEN /hpf (<or=2+); Red Blood Cells-Urine 0 SEEN /hpf (0-5); White Blood Cells 0 SEEN /hpf (0-5)
[2020-07-15 15:05] LABS: Color, Urine Yellow (Yellow); Glucose, Dipstick 50 mg/dl (Normal); Ketone-Dipstick Negative (Negative); Leukocyte Esterase-Dipstick Negative /ul (Negative); Nitrite-Dipstick Negative (Negative); Occult Blood-Urine Negative /ul (Negative); Protein-Dipstick Negative (Negative); Urine Bilirubin Dipstick Negative (Negative); Urine Clarity Sl. Cloudy (Clear); Urine Urobilinogen Normal (Normal)
[2020-07-15] MEDS: Ondansetron 4 MG/2 ML Vial IV (15:12)
[2020-07-15] MEDS: Morphine 4 MG/ML Syringe IV (15:12)
[2020-07-15 15:15] LABS: Squamous Epithelial Cells - UA 0-5 SEEN /hpf (5-10)
[2020-07-15 15:16] LABS: Bacteria RARE /hpf (None Seen)
== END 2020-07-15 15:37 | disposition home or self-care (01) ==
PROVIDERS: Emergency Provider Emergency Medicine; PCP Family Medicine
DX: K57.32 Diverticulitis of large intestine without perforation or abscess without bleeding (principal); E66.9 Obesity, unspecified; F17.200 Nicotine dependence, unspecified, uncomplicated; K59.00 Constipation, unspecified; M54.9 Dorsalgia, unspecified; G89.29 Other chronic pain; Z83.3 Family history of diabetes mellitus; E11.40 Type 2 diabetes mellitus with diabetic neuropathy, unspecified
CPT/HCPCS: 74177; 80053; 81001; 85025; 96374; 96375; 99284; J7030; Q9967; A4216; J2405

== ENCOUNTER 2020-10-23 13:23 | Emergency (ER) | payer OTHER, SELFPAY ==
[2020-10-23 13:23] VITALS: BP 160/73; PULSE 93; RESP 18; TEMP 36.1; O2SAT 97; BMI 40.6
--- NOTE | 2020-10-23 13:36 | CT_ITS ---
STUDY: CT ABDOMEN AND PELVIS WITH CONTRAST REASON FOR EXAM: Female, 55 years old. LLQ pain, eval diverticulitis RADIATION DOSAGE (If Supplied By Facility): CTDIvol = ( 17.07 ) mGy, DLP = ( 1216.08 ) mGycm TECHNIQUE: Transaxial images were obtained from the dome of the diaphragm to the symphysis pubis without oral contrast. IV 100mL Isovue-370 was administered. Sagittal and coronal images were reconstructed. Individualized dose optimization techniques were used for this CT. COMPARISON: CT abdomen and pelvis 07/15/2020 FINDINGS: The visualized lung bases are unremarkable. The visualized portions of the heart are within normal limits. There is hepatomegaly with diffuse hepatic enlargement Measuring up to 22.4 cm. Normal gallbladder and extrahepatic biliary system. Normal spleen. Normal pancreas. Normal bilateral adrenal glands. Normal right kidney. Normal left kidney. Normal visualized stomach. Normal small intestine. There is stable sigmoid diverticulosis and sigmoid wall thickening with trace pericolonic inflammation or stranding, similar to prior exam. No perforation or abscess. The appendix is visualized and appears normal. Mild aortobiiliac atherosclerotic disease. Normal inferior vena cava. Normal retroperitoneum. Collapsed urinary bladder. The uterus is retroverted. Normal abdominal wall. Normal osseous structures. CT/Abdomen/Pelvis W IV Cont ONLY IMPRESSION: Stable sigmoid wall thickening with trace pericolonic inflammation may represent mild sigmoid diverticulitis. There is no perforation or abscess. Colonoscopy, if not already performed, is recommended once clinically possible to exclude underlying mass. Hepatomegaly. Electronically Signed: Valentino Monge MD at 15:56 EDT Tel , Service support ,
[2020-10-23 13:41] LABS: Absolute Lymphocyte Count 2.05 X10^3/uL (0.83-4.51); Absolute Neutrophil Count 9.3 X10^3/uL (2.0-7.7); Basophil# 0.05 X10^3/uL; Basophil% 0.4 % (0-1); Eosinophil# 0.18 X10^3/uL; Eosinophils% 1.5 % (0-5); Hematocrit 42.9 % (37-47); Hemoglobin 13.9 g/dL (12.0-15.0); Lymphocyte # 2.05 X10^3/ul (0.83-4.51); Lymphocyte % 16.6 % (19-41); Mean Corp Hgb Conc 32.4 g/dL (32-36); Mean Corpuscular Hgb 29.9 pg (27.0-32.0); Mean Corpuscular Volume 92.3 fL (81-99); Mean Platelet Vol. 10.2 fl (6.2-12.0); Monocyte# 0.71 X10^3/uL; Monocyte% 5.7 % (0-10); NRBC Flagged by Analyzer 0 % (0-5); Neutrophil # 9.31 X10^3/uL (2.7-7.7); Neutrophil % 75.4 % (47-70); Platelet Count 363 K/mm3 (150-450); RBC Distribution Width CV 13.6 % (11.6-14.6); RBC Distribution Width SD 46.4 fl (35.1-43.9); Red Blood Count 4.65 M/mm3 (4.2-5.4); White Blood Count 12.4 K/mm3 (4.4-11.0)
[2020-10-23] MEDS: Ondansetron 4 MG/2 ML Vial IV (13:41)
[2020-10-23] MEDS: Morphine 4 MG/ML Syringe IV (13:41)
--- NOTE | 2020-10-23 13:46 | EDS_ITS ---
HPI History of Present Illness Chief Complaint: Abd Pain Informant: patient Narrative Narrative: Patient is a 55-year-old female with a past medical history of hypertension, diabetes who presents to the [facility] for left lower quadrant abdominal pain. Her symptoms have been present over the past 3 days. She feels like this is similar to her diverticulitis flares. She has been having loose stools. No blood or melanotic stools. She has been nauseous but not vomiting. No fevers, chills or body aches. No radiation of the pain. She describes the pain as an 8 out of 10. No known aggravating relieving factors. It has been constant. She tried taking ibuprofen for this which did not give any relief. She has had some urinary frequency but otherwise no urinary symptoms. No associated back pain. Only previous abdominal surgery was for kidney stone. [facility] Medical History (Updated 10/23/20 @ 16:[address] Steve Dewitt, ) Diverticulitis Tubal ectopic Home Medications insulin lispro [Humalog U-100 Insulin] 15 unit SUBCUT BREAKFAST 01/21/17 [History Last Taken Unknown] insulin lispro [Humalog U-100 Insulin] 25 unit SUBCUT DINNER 01/21/17 [History Last Taken Unknown] insulin lispro [Humalog U-100 Insulin] 25 unit SUBCUT LUNCH 01/21/17 [History Last Taken Unknown] losartan 25 mg PO DAILY 01/21/17 [History Last Taken 01/20/17] Liraglutide [Victoza 2-Leonard] 1.8 mg SQ DAILY 07/18/18 [History Last Taken Unknown] insulin degludec [Tresiba FlexTouch U-100] 65 units SQ DAILY 07/18/18 [History Last Taken Unknown] rosuvastatin 10 mg PO DAILY 07/18/18 [History Last Taken Unknown] omeprazole 20 mg PO DAILY 07/21/18 [History Last Taken Unknown] gabapentin 300 mg PO TID 05/01/19 [History Last Taken Unknown] ciprofloxacin HCl 500 mg PO BID #20 tab 07/15/20 [Rx Last Taken Unknown] metronidazole 500 mg PO Q8H #30 tab 07/15/20 [Rx Last Taken Unknown] ondansetron 4 mg PO Q6H PRN PRN #10 tab 07/15/20 [Rx Last Taken Unknown] amoxicillin-pot clavulanate [Augmentin] 1 tab PO BID 7 Days #14 tab 10/23/20 [Rx Last Taken Unknown] hydrocodone-acetaminophen 1 tab PO Q6H PRN PRN 3 Days #12 tablet 10/23/20 [Rx Last Taken Unknown] ondansetron 4 mg PO Q8H PRN 4 Days #10 tab 10/23/20 [Rx Last Taken Unknown] Allergy/AdvReac Type Severity Reaction Status Date / Time lansoprazole [From Prevacid] Allergy Rash Verified 10/23/20 13:25 Social History Smoking Status: Current every day smoker tobacco type: cigarettes ROS ROS ED Constitutional Constitutional ED: Denies chills or fever(s) Eyes Eyes: Denies change in vision ENT ENT ED: Reports epistaxis and neck pain Cardiovascular Cardiovascular: Denies chest pain or palpitations Respiratory/Chest Respiratory/Chest: Denies cough, dyspnea or dyspnea on exertion Gastrointestinal Gastrointestinal: Reports abdominal pain, diarrhea and nausea; Denies vomiting Genitourinary Genitourinary ED: Denies burning urination or hematuria Musculoskeletal Musculoskeletal: Denies back pain or neck pain Integumentary Denies rash Neurologic Neurologic: Denies dizziness, headache(s) or weakness EXAM Physical Exam Const Vital Signs: 10/23/20 13:23 10/23/20 15:10 Temperature 97 F L Temperature Source Temporal Pulse Rate 93 74 Respiratory Rate 18 16 Blood Pressure 160/73 H 121/57 H Blood Pressure Mean 102 78 Pulse Ox 97 96 Oxygen Delivery Method Room Air Room Air Positive well nourished and well developed General Appearance ED: well developed HEENT Reports normocephalic and head/scalp atraumatic Mouth ED: Yes moist mucous membranes normal Neck full ROM and supple Resp normal respiratory effort, normal air movement, no retractions, no use of acc essory muscles and clear to auscultation bilaterally Effort and Inspection: able to speak in complete sentences; Negative for respiratory distress Auscultation: clear to auscultation bilaterally Cardio regular rate, regular rhythm and no murmurs GI normal to inspection, nondistended, normoactive bowel sounds Palpation: tender LLQ; Negative for guarding Back/Spine normal ROM Extremity normal to inspection and full ROM Neuro oriented x3 and CN's II-XII intact bilaterally Psych mental status grossly normal Skin no rashes or lesions noted MDM MDM MDM Narrative Medical decision making narrative: Patient presents to the ED for left lower quadrant abdominal pain. She does have a history of diverticulitis and feels like this is similar. Upon arrival to the ED vital signs within normal limits. She is a benign physical exam except for mild tenderness to the left lower quadrant. Will check basic lab work along with urinalysis and CT scan abdomen/pelvis. Patient given morphine and Zofran for symptomatic treatment. She did take 2 doses of Flagyl yesterday that she states she had leftover. Patient's white blood cell count is minimally elevated. No significant electrolyte abnormality. Urine does not show any signs of infection. CT scan was concerning for sigmoid diverticulitis. She will be placed on Augmentin. She is given pain management with [place] as well as antiemetic for home symptomatic treatment. She is to follow-up with her PCP. She has had multiple colonoscopies before in the past. Return precautions are reviewed with her, she understands and is agreeable this plan. All questions answered. Lab Data Labs: Laboratory Results - last 24 hr 10/23/20 10/23/20 10/23/20 13:30 13:30 14:50 WBC 12.4 H RBC 4.65 Hgb 13.9 Hct 42.9 MCV 92.3 MCH 29.9 MCHC 32.4 RDW Std Deviation 46.4 H RDW Coeff of Matt 13.6 Plt Count 363 MPV 10.2 Immature Gran % (Auto) 0.400 Neut % (Auto) 75.4 H Lymph % (Auto) 16.6 L [place] % (Auto) 5.7 Eos % (Auto) 1.5 Baso % (Auto) 0.4 Absolute Neuts (auto) 9.3 H Absolute Lymphs (auto) 2.05 Nucleated RBC % 0 Sodium 137 Potassium 4.0 Chloride 106 Carbon Dioxide 25.0 Anion Gap 6 BUN 13 Creatinine 0.83 Estim Creat Clear Calc 70.53 Est GFR (MDRD) Af Amer 93 Est GFR (MDRD) Non-Af 77 BUN/Creatinine Ratio 15.7 Glucose 210 H Calcium 8.9 Total Bilirubin 0.30 AST 34 ALT 43 Alkaline Phosphatase 134 H Total Protein 7.8 Albumin 3.7 Globulin 4.1 Albumin/Globulin Ratio 0.9 Lipase 144 Urine Color Yellow Urine Clarity Clear Urine pH 6.5 Ur Specific [place] 1.010 Urine Protein 15 H Urine Glucose (UA) Normal Urine Ketones Negative Urine Occult Blood 10 H Urine Nitrite Negative Urine Bilirubin Negative Urine Urobilinogen Normal Ur Leukocyte Esterase 25 H Urine RBC 0 SEEN Urine WBC 0 SEEN Ur Squamous Epith Cells 0 SEEN Urine Bacteria 0 SEEN Urine Mucus 0 SEEN Radiography Diagnostic Testing: Radiology Impression Abdomen/Pelvis CT 10/23/20 13:36 IMPRESSION: Stable sigmoid wall thickening with trace pericolonic inflammation may represent mild sigmoid diverticulitis. There is no perforation or abscess. Colonoscopy, if not already performed, is recommended once clinically possible to exclude underlying mass. Hepatomegaly. Electronically Signed: Valentino Monge MD at 15:56 EDT Tel , Service support , Discharge Plan Triage Chief Complaint: Abd Pain ED Provider: Steve Dewitt Dx/Rx/DC Orders Clinical Impression: Diverticulitis Instructions: ED Diverticulitis Prescriptions: New amoxicillin-pot clavulanate [Augmentin] 875-125 mg tablet 1 tab PO BID 7 Days Qty: 14 RF: 0 hydrocodone-acetaminophen 5-325 mg tablet 1 tab PO Q6H PRN PRN (Reason: Pain) 3 Days Qty: 12 RF: 0 ondansetron 4 mg tablet,disintegrating 4 mg PO Q8H PRN (Reason: nausea and vomiting) 4 Days Qty: 10 RF: 0 No Action losartan 25 MG tablet 25 mg PO DAILY RF: 0 insulin lispro [Humalog U-100 Insulin] 100 UNIT/ML cartridge 25 unit subcut DINNER RF: 0 insulin lispro [Humalog U-100 Insulin] 100 UNIT/ML cartridge 25 unit subcut LUNCH RF: 0 insulin lispro [Humalog U-100 Insulin] 100 UNIT/ML cartridge 15 unit subcut BREAKFAST RF: 0 rosuvastatin 10 MG tablet 10 mg PO DAILY RF: 0 insulin degludec [Tresiba FlexTouch U-100] 100 insulin pen 65 units SQ DAILY RF: 0 Liraglutide [Victoza 2-Leonard] 18 Ml 1.8 mg SQ DAILY RF: 0 gabapentin 300 MG capsule 300 mg PO TID RF: 0 metronidazole 500 MG tablet 500 mg PO Q8H Qty: 30 RF: 0 ciprofloxacin HCl 500 MG tablet 500 mg PO BID Qty: 20 RF: 0 ondansetron 4 MG tablet 4 mg PO Q6H PRN PRN (Reason: Nausea) Qty: 10 RF: 0 omeprazole 20 MG capsule 20 mg PO DAILY RF: 0 Primary Care Provider: Ivan Florez Referrals: Ivan Florez MD [Primary Care Provider] - 3-5 Days if not improving Disposition Disposition: Home, self care Discharge Date/Time: 10/23/20 16:15
[2020-10-23 14:00] LABS: ALB/GLOB Ratio 0.9 RATIO (0.9-2.4); AST(SGOT) 34 U/L (15-37); Alanine Aminotransfer ALT/SGPT 43 U/L (13-56); Albumin, Serum 3.7 g/dL (3.2-5.0); Alkaline Phosphatase 134 U/L (45-117); Anion Gap 6 (5-15); BUN 13 mg/dL (7-18); BUN/Creat Ratio 15.7 RATIO (10-20); Calcium,Total 8.9 mg/dL (8.5-10.1); Chloride 106 mmol/L (98-107); Creatinine, Serum 0.83 mg/dL (0.55-1.02); EST Glomerular Filtration Rate 77 mL/min (>60); Est Glom Filt Rate - Afr Amer 93 mL/min (>60); Estimated Creatinine Clearance 70.53 ml/min; Globulin 4.1 g/dL (2.2-4.2); Glucose 210 mg/dL (74-106); Lipase 144 U/L (73-393); Protein, Total 7.8 g/dL (6.4-8.2); Sodium Level 137 mmol/L (136-145)
[2020-10-23 14:58] LABS: Bacteria 0 SEEN /hpf (None Seen); Mucous, Urine 0 SEEN /hpf (<or=2+); Red Blood Cells-Urine 0 SEEN /hpf (0-5); Squamous Epithelial Cells - UA 0 SEEN /hpf (5-10); White Blood Cells 0 SEEN /hpf (0-5)
[2020-10-23 15:07] LABS: Color, Urine Yellow (Yellow); Glucose, Dipstick Normal (Normal); Ketone-Dipstick Negative (Negative); Leukocyte Esterase-Dipstick 25 /ul (Negative); Nitrite-Dipstick Negative (Negative); Occult Blood-Urine 10 /ul (Negative); Protein-Dipstick 15 mg/dl (Negative); Urine Bilirubin Dipstick Negative (Negative); Urine Clarity Clear (Clear); Urine Urobilinogen Normal (Normal); Urine pH 6.5 (5.0 - 8.0)
[2020-10-23] MEDS: HYDROmorphone 0.5 MG/0.5 ML SYRINGE IV (15:07)
[2020-10-23 15:10] VITALS: BP 121/57; PULSE 74; RESP 16; O2SAT 96
[2020-10-23] MEDS: Amox/Clavulanate 875 MG Tablet PO (16:10)
== END 2020-10-23 16:15 | disposition home or self-care (01) ==
PROVIDERS: Emergency Provider Emergency Medicine; PCP Family Medicine
DX: K57.32 Diverticulitis of large intestine without perforation or abscess without bleeding (principal); R16.0 Hepatomegaly, not elsewhere classified; F17.210 Nicotine dependence, cigarettes, uncomplicated; Z87.442 Personal history of urinary calculi; I10 Essential (primary) hypertension; E11.9 Type 2 diabetes mellitus without complications; Z79.4 Long term (current) use of insulin; Z79.899 Other long term (current) drug therapy
CPT/HCPCS: 74177; 80053; 81001; 83690; 85025; 96374; 96375; 99284; Q9967; A4216; J2405

== ENCOUNTER 2021-08-28 20:39 | Emergency (ER) | payer OTHER, SELFPAY ==
[2021-08-28 20:40] VITALS: BP 147/62; PULSE 88; RESP 16; TEMP 35.7; O2SAT 98; BMI 41.1
--- NOTE | 2021-08-28 21:36 | CT_ITS ---
INDICATION: lower abd pain EXAMINATION: CT ABDOMEN AND PELVIS WITH CONTRAST - CT Abdomen And Pelvis W/ Contrast Injection TECHNIQUE: Helically acquired images were obtained of the abdomen and pelvis following IV contrast. A radiation dose optimization technique was used for this scan. IV Contrast dosage and agent: 100 mL of ISOVUE-300. Oral contrast: None. COMPARISON: CT abdomen and pelvis 10/23/2020 FINDINGS: LOWER CHEST: Lung bases are clear. No cardiomegaly or pericardial effusion. LIVER: Homogeneous. No focal mass. GALLBLADDER AND BILIARY TREE: No calcified gallstones. Gallbladder is partially collapsed. No intra- or extrahepatic biliary ductal dilation. PANCREAS: No focal cystic or solid mass. SPLEEN: Normal size without focal cystic or solid mass. ADRENAL GLANDS: No nodules. KIDNEYS, URETERS and BLADDER: Normal renal size and position. No mass. Punctate 2 nonobstructing renal stones inferior pole right kidney, the larger of which measures 4 mm. There is also a punctate, roughly 2 mm stone in the mid right kidney. Bladder is unremarkable. PERITONEUM: No ascites or free air. No other fluid collection. BOWEL: Normal appendix. No abnormally distended bowel loops or air fluid levels. No wall thickening or mass. No focal inflammatory changes. Previously seen sigmoid colon wall thickening no longer exemplified. A few diverticuli are seen in the sigmoid colon. LYMPH NODES: No enlarged mesenteric or retroperitoneal lymph nodes. VESSELS: Aorta is non-dilated. Minimal atherosclerosis. REPRODUCTIVE ORGANS: Within normal limits for the exam. ABDOMINAL WALL: No discrete abdominal or pelvic wall hernia. BONES: No lytic or blastic abnormality. CT/Abdomen/Pelvis W IV Cont ONLY IMPRESSION: No acute intra-abdominal pathology. Nonobstructing bilateral renal stones measuring 4 mm or smaller. Diverticulosis without diverticulitis. Electronically Signed: Antonio Cloud DO at 23:56 EDT ,
--- NOTE | 2021-08-28 21:38 | EDS_ITS ---
HPI HPI - GI History of Present Illness Chief Complaint: Abd Pain Informant: patient Abdominal Pain/Flank Pain Onset: Days Context: Gradual Onset Timing: Continuous Quality: Cramping Location: LLQ Current Severity: Mild Maximum Severity: Mild Nausea/Vomiting/Emesis GI Symptom: Negative for Vomiting Onset: Days Severity: Mild Diarrhea/Melena/Hematochezia GI Symptom: Negative for Diarrhea and Hematochezia Associated Symptoms Associated Symptoms: Positive for Dysuria Narrative Narrative: 55-year-old female history of diverticulitis in the past, diabetes and kidney stones. States that since she has had lower abdominal pain. Was seen by physician volunteer services assistant Karl Abbasi at the [facility] and was started on Augmentin twice daily. States she has been nauseated but no vomiting or diarrhea. Said the pain is no better may be a little worse and she is having pain now with urination. She denies any fever or chills. She denies any prior abdominal surgeries other than ectopic . Prior similar symptoms: Yes Recent Illness/Hospitalization: No PFSH PFSH Medical History (Updated 08/28/21 @ 23:[address] Pino Trevino MD) Diverticulitis Kidney stones Tubal ectopic Home Medications insulin lispro [Humalog U-100 Insulin] 15 unit SUBCUT BREAKFAST 01/21/17 [History Last Taken Unknown] insulin lispro [Humalog U-100 Insulin] 25 unit SUBCUT DINNER 01/21/17 [History Last Taken Unknown] insulin lispro [Humalog U-100 Insulin] 25 unit SUBCUT LUNCH 01/21/17 [History Last Taken Unknown] losartan 25 mg PO DAILY 01/21/17 [History Last Taken 01/20/17] Liraglutide [Victoza 2-Leonard] 1.8 mg SQ DAILY 07/18/18 [History Last Taken Unknown] insulin degludec [Tresiba FlexTouch U-100] 65 units SQ DAILY 07/18/18 [History Last Taken Unknown] rosuvastatin 10 mg PO DAILY 07/18/18 [History Last Taken Unknown] omeprazole 20 mg PO DAILY 07/21/18 [History Last Taken Unknown] gabapentin 300 mg PO TID 05/01/19 [History Last Taken Unknown] ciprofloxacin HCl 500 mg PO BID #20 tab 07/15/20 [Rx Last Taken Unknown] metronidazole 500 mg PO Q8H #30 tab 02/20/21 [Rx Last Taken Unknown] ondansetron 4 mg PO Q6H PRN PRN #10 tab 07/15/20 [Rx Last Taken Unknown] amoxicillin-pot clavulanate [Augmentin] 1 tab PO BID 7 Days #14 tab 10/23/20 [Rx Last Taken Unknown] hydrocodone-acetaminophen 1 tab PO Q6H PRN PRN 3 Days #12 tablet 10/23/20 [Rx Last Taken Unknown] ondansetron 4 mg PO Q8H PRN 4 Days #10 tab 10/23/20 [Rx Last Taken Unknown] Allergy/AdvReac Type Severity Reaction Status Date / Time lansoprazole [From Prevacid] Allergy Rash Verified 08/28/21 20:40 Social History Smoking Status: Current every day smoker tobacco type: cigarettes ROS ROS ED ROS Narrative Abdominal pain. Nausea. Dysuria. Review of Systems ROS Unobtainable: Denies due to encephalopathy Constitutional Constitutional ED: Denies fever(s) ENT ENT ED: Denies ear pain Cardiovascular Cardiovascular: Denies chest pain Respiratory/Chest Respiratory/Chest: Denies cough or dyspnea Gastrointestinal Gastrointestinal: Reports abdominal pain, constipation and nausea; Denies d iarrhea or vomiting Genitourinary Genitourinary ED: Reports dysuria Musculoskeletal Musculoskeletal: Denies myalgias Integumentary Denies rash Neurologic Neurologic: Denies headache(s) Psychiatric Psychiatric: Denies depression Endocrine Endocrinology: Denies polyuria Hematologic/Lymphatic Hematologic/Lymphatic: Denies easy bruising EXAM Physical Exam Narrative Exam Narrative: 55 of female no acute distress vital signs stable afebrile. H EENT exam unremarkable. Metric members. Lungs clear to auscultation. Heart regular rate and rhythm no murmur. Abdomen soft nondistended normal bowel sound s no peritoneal signs. Tenderness primarily in the left lower quadrant. No hernia or mass. No obstruction. No pulsatile mass. Patient moving all 4 extremities. Calves are nontender without edema or cords. Const Vital Signs: 08/28/21 20:40 Temperature 96.2 F L Temperature Source Temporal Pulse Rate 88 Respiratory Rate 16 Blood Pressure 147/62 H Blood Pressure Mean 90 Pulse Ox 98 Oxygen Delivery Method Room Air Positive well nourished, well developed and obese; Negative for cachectic, contractures or unkempt General Appearance ED: well developed and NAD; Negative for unkempt, cachectic, contractures or pallor Nutritional Appearance: obese; Negative for cachectic HEENT Reports moist mucous membranes normocephalic and atraumatic; Negative for trauma or tenderness Eyes PERRL and EOMs intact bilaterally Neck no lymphadenopathy, supple and no JVD General: Negative for tenderness Resp normal respiratory effort and clear to auscultation bilaterally Auscultation: Negative for rales, rhonchi or wheezes Cardio regular rate, regular rhythm, S1 normal heart sound, S2 normal heart sound and no murmurs GI non-distended and no masses; Negative for non-tender Inspection: Negative for abdominal distention Auscultation: normoactive bowel sounds Palpation: soft and tender; Negative for guarding, rigid or rebound tenderness present Back/Spine no CVA tenderness General Back: Negative for CVA tenderness Cervical Spine: Negative for cervical spine tenderness Thoracic Spine / Upper Back: Negative for thoracic spinal tenderness Extremity full ROM General Extremety ED: Negative for edema or tenderness General Extremity: Negative for edema Neuro moves all extremities Sensorium / Orientation: alert, oriented to person, oriented to place and oriented to time; Negative for confused, lethargic or stuporous Motor Exam: strength 5/5 throughout Psych mental status grossly normal and thought process normal Appearance: Negative for unkempt Mood & Affect: Negative for depressed or tearful Skin no wounds General Skin Exam: Negative for jaundice or pallor Lesions: no lesions Rashes: no rashes MDM MDM MDM Narrative Medical decision making narrative: 55-year-old female left lower quadrant abdominal pain. CAT scan labs pending. Differential be diverticulitis versus constipation versus urinary tract infection. She is driving so she will be given Toradol for pain and Zofran for nausea. A liter fluid. Multiple repeat exams patient is doing well. She and I discussed her test results and CAT scan. She will be discharged home with abdominal pain of uncertain etiology. Lab Data Attestation: I reviewed the patient's lab results. Lab results narrative: CBC is unremarkable. White count of 10. H&H 13 and 39. Electrolytes show a gap of 5. Normal BUN and creatinine. Liver enzymes normal. Lipase normal at 210. Urinalysis normal. 5-10 red cells. No infection. CAT scan of the abdomen is read by the radiologist and reviewed by me shows no acute pathology. She has bilateral renal stones. She has diverticulosis. But no acute cause for pain peer Labs: Laboratory Results - last 24 hr 08/28/21 08/28/21 08/28/21 21:55 21:55 23:13 WBC 10.6 RBC 4.37 Hgb 13.3 Hct 39.9 MCV 91.3 MCH 30.4 MCHC 33.3 RDW Std Deviation 44.2 H RDW Coeff of Matt 13.1 Plt Count 324 MPV 10.5 Immature Gran % (Auto) 0.400 Neut % (Auto) 62.3 Lymph % (Auto) 26.6 [place] % (Auto) 6.6 Eos % (Auto) 3.7 Baso % (Auto) 0.4 Absolute Neuts (auto) 6.6 Absolute Lymphs (auto) 2.82 Nucleated RBC % 0 Sodium 140 Potassium 3.8 Chloride 110 H Carbon Dioxide 25.0 Anion Gap 5 BUN 12 Creatinine 0.80 Estim Creat Clear Calc 73.18 Est GFR (MDRD) Af Amer 97 Est GFR (MDRD) Non-Af 80 BUN/Creatinine Ratio 15.1 Glucose 226 H Calcium 8.8 Total Bilirubin 0.20 AST 17 ALT 30 Alkaline Phosphatase 106 Total Protein 6.8 Albumin 3.2 Globulin 3.6 Albumin/Globulin Ratio 0.9 Lipase 210 Urine Color Yellow Urine Clarity Clear Urine pH 5.0 Ur Specific [place] 1.020 Urine Protein 30 H Urine Glucose (UA) 100 H Urine Ketones 5 H Urine Occult Blood 25 H Urine Nitrite Negative Urine Bilirubin Negative Urine Urobilinogen Normal Ur Leukocyte Esterase 25 H Urine RBC 5-10 SEEN Urine WBC 0-5 SEEN Ur Squamous Epith Cells 0 SEEN Calcium Oxalate Crystal 1+ Urine Bacteria 0 SEEN Urine Mucus 0 SEEN Radiography Diagnostic Testing: Clinical Impression(s) from Imaging Studies Abdomen/Pelvis CT 08/28/21 21:36 IMPRESSION: No acute intra-abdominal pathology. Nonobstructing bilateral renal stones measuring 4 mm or smaller. Diverticulosis without diverticulitis. Electronically Signed: Antonio Cloud DO at 23:56 EDT , Discharge Plan Triage Chief Complaint: Abd Pain Other Complaint: Complaint ED Provider: Pino Trevino Dx/Rx/DC Orders Clinical Impression: Abdominal pain, History of diverticulitis, History of diabetes mellitus Instructions: Abdominal Pain Prescriptions: No Action losartan 25 MG tablet 25 mg PO DAILY RF: 0 insulin lispro [Humalog U-100 Insulin] 100 UNIT/ML cartridge 25 unit subcut DINNER RF: 0 insulin lispro [Humalog U-100 Insulin] 100 UNIT/ML cartridge 25 unit subcut LUNCH RF: 0 insulin lispro [Humalog U-100 Insulin] 100 UNIT/ML cartridge 15 unit subcut BREAKFAST RF: 0 rosuvastatin 10 MG tablet 10 mg PO DAILY RF: 0 insulin degludec [Tresiba FlexTouch U-100] 100 insulin pen 65 units SQ DAILY RF: 0 Liraglutide [Victoza 2-Leonard] 18 Ml 1.8 mg SQ DAILY RF: 0 gabapentin 300 MG capsule 300 mg PO TID RF: 0 metronidazole 500 MG tablet 500 mg PO Q8H Qty: 30 RF: 0 ciprofloxacin HCl 500 MG tablet 500 mg PO BID Qty: 20 RF: 0 ondansetron 4 MG tablet 4 mg PO Q6H PRN PRN (Reason: Nausea) Qty: 10 RF: 0 amoxicillin-pot clavulanate [Augmentin] 875-125 mg tablet 1 tab PO BID 7 Days Qty: 14 RF: 0 hydrocodone-acetaminophen 5-325 mg tablet 1 tab PO Q6H PRN PRN (Reason: Pain) 3 Days Qty: 12 RF: 0 ondansetron 4 mg tablet,disintegrating 4 mg PO Q8H PRN (Reason: nausea and vomiting) 4 Days Qty: 10 RF: 0 omeprazole 20 MG capsule 20 mg PO DAILY RF: 0 Primary Care Provider: Ivan Florez Referrals: Ivan Florez MD [Primary Care Provider] - 3-5 Days if not improving Activity Restrictions/Additional Instructions: Your labs and CAT scan did not show specific cause for your pain. Follow-up with your primary care provider. Return if worse. Disposition Disposition: Home, Self Care
[2021-08-28] MEDS: Ondansetron 4 MG/2 ML Vial IV (21:56)
[2021-08-28] MEDS: Ketorolac 30 MG/ML Syringe IV (21:56)
[2021-08-28] MEDS: 0.9% Normal Saline 1,000 ML 1000 ML IV (21:57)
[2021-08-28 22:08] LABS: Absolute Lymphocyte Count 2.82 X10^3/uL (0.83-4.51); Absolute Neutrophil Count 6.6 X10^3/uL (2.0-7.7); Basophil# 0.04 X10^3/uL; Basophil% 0.4 % (0-1); Eosinophil# 0.39 X10^3/uL; Eosinophils% 3.7 % (0-5); Hematocrit 39.9 % (37-47); Hemoglobin 13.3 g/dL (12.0-15.0); Lymphocyte # 2.82 X10^3/ul (0.83-4.51); Lymphocyte % 26.6 % (19-41); Mean Corp Hgb Conc 33.3 g/dL (32-36); Mean Corpuscular Hgb 30.4 pg (27.0-32.0); Mean Corpuscular Volume 91.3 fL (81-99); Mean Platelet Vol. 10.5 fl (6.2-12.0); Monocyte% 6.6 % (0-10); NRBC Flagged by Analyzer 0 % (0-5); Neutrophil # 6.63 X10^3/uL (2.7-7.7); Neutrophil % 62.3 % (47-70); Platelet Count 324 K/mm3 (150-450); RBC Distribution Width CV 13.1 % (11.6-14.6); RBC Distribution Width SD 44.2 fl (35.1-43.9); Red Blood Count 4.37 M/mm3 (4.2-5.4); White Blood Count 10.6 K/mm3 (4.4-11.0)
[2021-08-28 22:26] LABS: ALB/GLOB Ratio 0.9 RATIO (0.9-2.4); AST(SGOT) 17 U/L (15-37); Alanine Aminotransfer ALT/SGPT 30 U/L (13-56); Albumin, Serum 3.2 g/dL (3.2-5.0); Alkaline Phosphatase 106 U/L (45-117); Anion Gap 5 (5-15); BUN 12 mg/dL (7-18); BUN/Creat Ratio 15.1 RATIO (10-20); Calcium,Total 8.8 mg/dL (8.5-10.1); Chloride 110 mmol/L (98-107); EST Glomerular Filtration Rate 80 mL/min (>60); Est Glom Filt Rate - Afr Amer 97 mL/min (>60); Estimated Creatinine Clearance 73.18 ml/min; Globulin 3.6 g/dL (2.2-4.2); Glucose 226 mg/dL (74-106); Lipase 210 U/L (73-393); Potassium 3.8 mmol/L (3.5-5.1); Protein, Total 6.8 g/dL (6.4-8.2); Sodium Level 140 mmol/L (136-145)
[2021-08-28 23:19] LABS: Bacteria 0 SEEN /hpf (None Seen); Color, Urine Yellow (Yellow); Glucose, Dipstick 100 mg/dl (Normal); Ketone-Dipstick 5 mg/dl (Negative); Leukocyte Esterase-Dipstick 25 /ul (Negative); Mucous, Urine 0 SEEN /hpf (<or=2+); Nitrite-Dipstick Negative (Negative); Occult Blood-Urine 25 /ul (Negative); Protein-Dipstick 30 mg/dl (Negative); Squamous Epithelial Cells - UA 0 SEEN /hpf (5-10); Urine Bilirubin Dipstick Negative (Negative); Urine Clarity Clear (Clear); Urine Urobilinogen Normal (Normal)
[2021-08-28 23:26] LABS: Red Blood Cells-Urine 5-10 SEEN /hpf (0-5); White Blood Cells 0-5 SEEN /hpf (0-5)
[2021-08-28 23:27] LABS: Calcium Oxalate Crystals Ur 1+ /hpf (<or=2+)
[2021-08-29] VITALS: BP 135/68; PULSE 82; RESP 18; O2SAT 97
== END 2021-08-29 00:11 | disposition home or self-care (01) ==
PROVIDERS: Emergency Provider Emergency Medicine; PCP Family Medicine; Visit Provider Emergency Medicine
DX: R10.32 Left lower quadrant pain (principal); E11.9 Type 2 diabetes mellitus without complications; R11.2 Nausea with vomiting, unspecified; F17.210 Nicotine dependence, cigarettes, uncomplicated; Z87.442 Personal history of urinary calculi
CPT/HCPCS: 74177; 80053; 81001; 83690; 85025; 96361; 96374; 96375; 99285; J7030; Q9967; A4216; J2405

== ENCOUNTER 2022-02-28 17:43 | Outpatient (RCR) | payer OTHER, SELFPAY ==
--- NOTE | 2022-02-28 18:39 | HP.PTEVAL ---
Patient's Visit Information ALCIDES RUIZ is a 56 year old F referred to Physical Therapy by MONIQUE Moss with a diagnosis of dizzyness. Date of Evaluation: 02/28/22 Physical Therapist: Blue Crenshaw, OMART, OCS, CSCS - Visit Plan Frequency: 1x/Week Duration: 2-4 Weeks Plan: weekly x 2-4 to progress adaptation ex if helpful, pt is questionable whether these will be helpful or if this is vestibular at all but no central signs today so trial appropriate. Doing VOR H and V 60 sec 6x/day, should check these next time as well as subjective adn up from knee motion. - Subjective BAPTISTE and wavy feeling for last month and a half constantly. Lying down feels pressure in face and nose. Catscan sinus was clear. Movement makes it worse. Looking down and moving head make it worse. Not bad lying down. Started insidously 6 weeks ago with pain in ears after vacation, ears popping. Sleeping is normal for her but not great generally. 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 Activity: neglecting household duties, babysitting b/c it makes them much harder as I do not feel good.. Basic ADLs are getting done. Saw rachael and kellee and said not vertigo. Antibiotic tried at beginning but it did not help the head symptoms. No falls - Objective Walks and trasnfers I and normal with good balance. Steps reciprocal without rail. cervical aROM WNL and painfree. UE AROM WFL. - B hallpike mao, - roll test. Oculomotor: no nystagmus wit gaze or head shake. normal convergence. - ocular tilt. - skew eye deviation. - head thrust. normal VOR and saccades. Normal VOR H and V but does slightly increase her wavy feeling and pressure under eyes for 1 minute or so. MSQ: No positions cause her any increased symptoms except up form each knee for 1 second briefly. - Balance/Special Test Scores Functional Gait Assessment Score: 30 % Disability: 0 CATSIB Score (Max score 120 seconds): 120 Dizziness Score: 52 - Goals Goal 1:: abolish wavy feeling and eye pressure. Goal Time Frame: 2-4 Weeks Goal 2:: Pt feel back to 75% of activities and work without increased symptoms Goal Time Frame: 2-4 Weeks - Rehabilitation Potential Physical Therapy Diagnosis: Dizzyness unknownetiology, does not appear to be vestibular but will r/o with exercises Rehabilitation Potential: Questionable - Anticipated Interventions Patient/Client Instruction: Educate patient on: Condition, Plan of Care For the Purpose of:: To increase tolerance to activity/condition/position Comment: adapataion ex s helpful For the Purpose of:: To increase tolerance to activity/condition/position Thank you for the opportunity to evaluate your patient. For Medicare and Medicare HMO plans, please review the plan of care and approve it. It will need to be FAXED BACK to us at [phone] for Medicare purposes. For Medicare only, by signing this I certify the plan of care. Please let me know if there are questions or concerns regarding this plan of care. Physician Signature: Date:
--- NOTE | 2022-04-26 13:54 | HP.PT.NRP ---
ALCIDES RUIZ was seen in my office for initial evaluation on 02/28/22. The following Plan of Care was established for this patient: Initial Frequency: 1x/Week Initial Duration: 2-4 Weeks Patient/Client Instruction: Educate patient on: Condition, Plan of Care For the Purpose of:: To increase tolerance to activity/condition/position For the Purpose of:: To increase tolerance to activity/condition/position This patient was last seen in our office 02/28/22. Pertinent comments regarding their Physical therapy will appear below: Pt see for IE and POC established. She did not schedule or return for any further visits. At this point, it has been nearly two months and I will discontinue from my care. At this point I will be discontinuing this patient from physical therapy. I would be happy to see this patient again in the future if found appropriate by the physician. Thank you! Blue Crenshaw, DPT, OCS, CSCS Balance/Gait/Functional tests - Balance/Special Test Scores Functional Gait Assessment Score: 30 % Disability: 0 CATSIB Score (Max score 120 seconds): 120 Dizziness Score: 52
== END 2022-02-28 19:00 | disposition home or self-care (01) ==
LOC: PT 17:43
PROVIDERS: PCP Family Medicine; Referring Provider Physician Assistant; Visit Provider Physician Assistant
DX: R42 Dizziness and giddiness (principal)
CPT/HCPCS: 97162

== ENCOUNTER 2022-05-31 00:19 | Emergency (ER) | payer OTHER, SELFPAY ==
[2022-05-31 00:22] VITALS: BP 174/71; PULSE 85; RESP 16; TEMP 36.6; O2SAT 98; BMI 40.2
[2022-05-31 00:58] LABS: Color, Urine Yellow (Yellow); Glucose, Dipstick Normal (Normal); Ketone-Dipstick Negative (Negative); Leukocyte Esterase-Dipstick 500 /ul (Negative); Mucous, Urine 0 SEEN /hpf (<or=2+); Nitrite-Dipstick Negative (Negative); Occult Blood-Urine 250 /ul (Negative); Protein-Dipstick 100 mg/dl (Negative); Red Blood Cells-Urine 0 SEEN /hpf (0-5); Squamous Epithelial Cells - UA 0 SEEN /hpf (5-10); Urine Bilirubin Dipstick Negative (Negative); Urine Clarity Cloudy (Clear); Urine Urobilinogen Normal (Normal)
[2022-05-31 01:09] LABS: Bacteria 1+ /hpf (None Seen); White Blood Cells 50-100 SEEN /hpf (0-5)
--- NOTE | 2022-05-31 01:37 | EX.ED.DYSGE1 ---
HPI History of Present Illness Chief Complaint: Complaint Narrative Narrative: Patient is a 56-year-old female with history of type 2 diabetes on insulin. She states she was seen at an urgent care and treated for 5 days with an antibiotic secondary to UTI. She states she finished the medication 2 or 3 days ago and now has return of urinary frequency urgency and dysuria. She denies any fevers or chills. She denies any vaginal discharge or concern for STD. She states she has been taking her antidiabetic medications as directed. Patient states that she has concerned she may developed a repeat UTI with this comes in for evaluation [facility] Medical History (Updated 05/31/22 @ 04:[address] Elkin Anguiano, DO) Diverticulitis Kidney stones Tubal ectopic Home Medications insulin lispro 100 unit/mL subcutaneous cartridge (Humalog U-100 Insulin) 15 unit subcut BREAKFAST 01/21/17 [History Last Taken Unknown] insulin lispro 100 unit/mL subcutaneous cartridge (Humalog U-100 Insulin) 25 unit subcut DINNER 01/21/17 [History Last Taken Unknown] insulin lispro 100 unit/mL subcutaneous cartridge (Humalog U-100 Insulin) 25 unit subcut LUNCH 01/21/17 [History Last Taken Unknown] losartan 25 mg tablet 25 mg PO DAILY 01/21/17 [History Last Taken 01/20/17] Liraglutide [Victoza 2-Leonard] 1.8 mg SQ DAILY 07/18/18 [History Last Taken Unknown] insulin degludec 100 unit/mL (3 mL) subcutaneous pen (Tresiba FlexTouch U-100 insulin) 65 units SQ DAILY 07/18/18 [History Last Taken Unknown] rosuvastatin 10 mg tablet 10 mg PO DAILY 07/18/18 [History Last Taken Unknown] omeprazole 20 mg capsule,delayed release 20 mg PO DAILY 07/21/18 [History Last Taken Unknown] gabapentin 300 mg capsule 300 mg PO TID 05/01/19 [History Last Taken Unknown] ciprofloxacin HCl 500 mg tablet 500 mg PO BID #20 tabs 07/15/20 [Rx Last Taken Unknown] metronidazole 500 mg tablet 500 mg PO Q8H #30 tabs 07/15/20 [Rx Last Taken Unknown] ondansetron 4 mg disintegrating tablet 4 mg PO Q6H PRN PRN Nausea #10 tabs 07/15/20 [Rx Last Taken Unknown] amoxicillin 875 mg-potassium clavulanate 125 mg tablet (Augmentin) 1 tab PO BID 7 days #14 tabs 10/23/20 [Rx Last Taken Unknown] hydrocodone-acetaminophen 5-325mg 5mg-325mg 1 tab PO Q6H PRN PRN Pain 3 days #12 TABLETS 10/23/20 [Rx Last Taken Unknown] ondansetron 4 mg disintegrating tablet 4 mg PO Q8H PRN nausea and vomiting 4 days #10 tabs 10/23/20 [Rx Last Taken Unknown] cephalexin 500 mg capsule 500 mg PO TID 7 days #21 caps 05/31/22 [Rx Last Taken Unknown] phenazopyridine 200 mg tablet (Pyridium) 200 mg PO TID #10 tabs 05/31/22 [Rx Last Taken Unknown] Allergy/AdvReac Type Severity Reaction Status Date / Time lansoprazole [From Prevacid] Allergy Rash Verified 05/31/22 00:21 Social History Smoking Status: Current every day smoker tobacco type: cigarettes ROS ROS ED Constitutional Constitutional ED: Denies chills or fever(s) ENT ENT ED: Denies sore throat Cardiovascular Cardiovascular: Denies chest pain Respiratory/Chest Respiratory/Chest: Denies cough or dyspnea Gastrointestinal Gastrointestinal: Reports abdominal pain; Denies diarrhea, nausea or vomiting Genitourinary Genitourinary ED: Reports dysuria; Denies hematuria Musculoskeletal Musculoskeletal: Denies back pain or myalgias Integumentary Denies rash Neurologic Neurologic: Denies headache(s) Hematologic/Lymphatic Hematologic/Lymphatic: Denies easy bleeding or easy bruising EXAM Physical Exam Const Vital Signs: 05/31/22 00:22 Temperature 97.9 F Temperature Source Temporal Pulse Rate 85 Respiratory Rate 16 Blood Pressure 174/71 H Blood Pressure Mean 105 Pulse Ox 98 Oxygen Delivery Method Room Air Positive well nourished, well developed and obese General Appearance ED: well developed Nutritional Appearance: obese HEENT Reports moist mucous membranes Eyes PERRL and EOMs intact bilaterally Neck supple Resp normal respiratory effort and clear to auscultation bilaterally Cardio regular rate and regular rhythm GI non-distended GI Narrative: Mild pain on palpation in the suprapubic region without voluntary guarding or rigidity Auscultation: normoactive bowel sounds Palpation: soft Back/Spine no CVA tenderness Extremity normal to inspection Neuro oriented x3 and CN's II-XII intact bilaterally Sensorium / Orientation: alert Psych mental status grossly normal Skin no rashes or lesions noted MDM MDM MDM Narrative Medical decision making narrative: Patient presented to the ER afebrile and slightly hypertensive going against any type of systemic infection. Because of her diabetic status and her recent antibiotic treatment I did discuss obtaining basic blood work. Patient states that as her vitals are stable she does not feel the need for this. Therefore only a urine sample and urine culture were obtained. The urine sample did show changes consistent with infection. As she does not have physical exam findings concerning for urosepsis she will be started antibiotics and can be discharged home Lab Data Attestation: I reviewed the patient's lab results. Labs: Laboratory Results - last 24 hr 05/31/22 00:54 Urine Color Yellow Urine Clarity Cloudy Urine pH 5.0 Ur Specific [place] 1.020 Urine Protein 100 H Urine Glucose (UA) Normal Urine Ketones Negative Urine Occult Blood 250 H Urine Nitrite Negative Urine Bilirubin Negative Urine Urobilinogen Normal Ur Leukocyte Esterase 500 H Urine RBC 0 SEEN Urine WBC 50-100 SEEN Ur Squamous Epith Cells 0 SEEN Urine Bacteria 1+ Urine Mucus 0 SEEN Discharge Plan Triage Chief Complaint: Complaint ED Provider: Elkin Anguiano Dx/Rx/DC Orders Clinical Impression: Urinary tract infection, Diabetes mellitus, type II Instructions: Urinary Tract Infections in Women Prescriptions: New cephalexin 500 mg capsule 500 mg PO TID 7 Days Qty: 21 0RF phenazopyridine [Pyridium] 200 mg tablet 200 mg PO TID Qty: 10 0RF No Action losartan 25 MG tablet 25 mg PO DAILY Label Comments: TAKE 1 TABLET BY MOUTH EVERY DAY for kidney protection insulin lispro [Humalog U-100 Insulin] 100 UNIT/ML cartridge 25 unit subcut DINNER Rx Instructions: variable insulin lispro [Humalog U-100 Insulin] 100 UNIT/ML cartridge 25 unit subcut LUNCH Rx Instructions: variable insulin lispro [Humalog U-100 Insulin] 100 UNIT/ML cartridge 15 unit subcut BREAKFAST Label Comments: 15 breakfast 25 lunch 25 dinner Rx Instructions: variable rosuvastatin 10 MG tablet 10 mg PO DAILY insulin degludec [Tresiba FlexTouch U-100] 100 insulin pen 65 units SQ DAILY Liraglutide [Victoza 2-Leonard] 18 Ml 1.8 mg SQ DAILY gabapentin 300 MG capsule 300 mg PO TID metronidazole 500 MG tablet 500 mg PO Q8H Qty: 30 0RF ciprofloxacin HCl 500 MG tablet 500 mg PO BID Qty: 20 0RF ondansetron 4 MG tablet 4 mg PO Q6H PRN PRN (Reason: Nausea) Qty: 10 0RF amoxicillin-pot clavulanate [Augmentin] 875-125 mg tablet 1 tab PO BID 7 Days Qty: 14 0RF hydrocodone-acetaminophen 5-325 mg tablet 1 tab PO Q6H PRN PRN (Reason: Pain) 3 Days Qty: 12 0RF ondansetron 4 mg tablet,disintegrating 4 mg PO Q8H PRN (Reason: nausea and vomiting) 4 Days Qty: 10 0RF omeprazole 20 MG capsule 20 mg PO DAILY Primary Care Provider: Ivan Florez Referrals: Ivan Florez MD [Primary Care Provider] - Activity Restrictions/Additional Instructions: Your symptoms and testing are consistent with recurrent urinary tract infection. Secondary to this take the medication as directed to help resolve your infection. If your urine culture shows that your antibiotic will not help with the infection you will receive a phone call. If you have any further concerns or worsening of symptoms please return to the ER for repeat evaluation Disposition Disposition: Home, Self Care Discharge Date/Time: 05/31/22 01:47
[2022-05-31] MEDS: Phenazopyridine 95 MG Tablet 190 MG PO (01:45)
[2022-05-31] MEDS: Cephalexin 250 MG Capsule 500 MG PO (01:46)
== END 2022-05-31 01:47 | disposition home or self-care (01) ==
PROVIDERS: Emergency Provider Emergency Medicine; PCP Family Medicine; Visit Provider Emergency Medicine
DX: N39.0 Urinary tract infection, site not specified (principal); E11.9 Type 2 diabetes mellitus without complications; Z79.4 Long term (current) use of insulin; F17.210 Nicotine dependence, cigarettes, uncomplicated; Z87.442 Personal history of urinary calculi
CPT/HCPCS: 81001; 87077; 87086; 87088; 87186; 99283

== ENCOUNTER 2024-02-18 22:17 | Inpatient (IN) | payer OTHER, SELFPAY ==
[2024-02-18 22:18] VITALS: BP 196/77; PULSE 81; RESP 16; TEMP 36.6; O2SAT 99; BMI 37.5
--- NOTE | 2024-02-18 22:47 | CT_ITS ---
We are attempting to reach an attending provider to discuss findings. An addendum with communication details will be sent when the communication is complete. EXAM: CT ABDOMEN AND PELVIS WITH INTRAVENOUS CONTRAST CLINICAL INDICATION: abd pain / ? Diverticulitis TECHNIQUE: Helically acquired images were obtained of the abdomen and pelvis with intravenous contrast. This CT exam was performed using one or more of the following dose reduction techniques: automated exposure control, adjustment of the mA and/or kV according to patient size, and/or use of iterative reconstruction technique. CONTRAST: IV 100mL Isovue-370 COMPARISON: 08/28/2021. FINDINGS: LOWER THORAX: Small hiatal hernia. Lung bases are clear. No cardiomegaly. No significant pericardial effusion. ABDOMEN: LIVER: Hepatomegaly. No focal hepatic abnormality is identified. GALLBLADDER AND BILE DUCTS: No significant abnormality. No calcified gallstones. No gallbladder distention or wall edema. No intra- or extrahepatic biliary ductal dilation. PANCREAS: No significant abnormality. No focal cystic or solid mass. SPLEEN: No significant abnormality. Normal size without focal cystic or solid mass. ADRENALS: No significant abnormality. No nodules. KIDNEYS AND URETERS: No significant abnormality. Normal renal size and position. No hydronephrosis. STOMACH AND BOWEL: Masslike wall thickening of the sigmoid colon with surrounding strandy opacities. Associated diverticulosis of the colon. No bowel obstruction. PELVIS: APPENDIX: Normal appendix in the mid pelvis. BLADDER: No significant abnormality. REPRODUCTIVE: Normal as visualized. No mass. ABDOMEN and PELVIS: INTRAPERITONEAL SPACE: No large-volume pneumoperitoneum. Possible localized perforation with small foci of air adjacent to the sigmoid colon versus contained small diverticula obscured due to the degree of inflammation. Strandy opacities in the left lower quadrant mesentery. No ascites or other fluid collection. BONES/JOINTS: No significant abnormality. No suspicious lytic or blastic abnormality. SOFT TISSUES: No significant abnormality. No discrete abdominal or pelvic wall hernia. VASCULATURE: Atherosclerosis of the aorta and its branch vessels. Abdominal aorta is non-dilated. LYMPH NODES: No significant abnormality. No enlarged lymph nodes. CT/Abdomen/Pelvis W IV Cont ONLY IMPRESSION: 1. Findings most consistent with acute diverticulitis of the sigmoid colon. Underlying malignancy cannot be entirely excluded. Possible localized perforation without abscess versus air containing within a diverticulum. No large volume pneumoperitoneum. 2. Hepatomegaly. Electronically Signed: Jose Perez DO at 23:56 EDT ,
[2024-02-18 23:06] LABS: Absolute Lymphocyte Count 2.75 X10^3/uL (0.83-4.51); Absolute Neutrophil Count 9.2 X10^3/uL (2.0-7.7); Basophil# 0.06 X10^3/uL; Basophil% 0.5 % (0-1); Eosinophil# 0.24 X10^3/uL; Eosinophils% 1.8 % (0-5); Hematocrit 40.1 % (37-47); Hemoglobin 13.1 g/dL (12.0-15.0); Lymphocyte # 2.75 X10^3/ul (0.83-4.51); Lymphocyte % 20.7 % (19-41); Mean Corp Hgb Conc 32.7 g/dL (32-36); Mean Corpuscular Hgb 30.2 pg (27.0-32.0); Mean Corpuscular Volume 92.4 fL (81-99); Mean Platelet Vol. 10.8 fl (6.2-12.0); Monocyte% 7.5 % (0-10); NRBC Flagged by Analyzer 0 % (0-5); Neutrophil # 9.18 X10^3/uL (2.7-7.7); Neutrophil % 69.1 % (47-70); Platelet Count 295 K/mm3 (150-450); RBC Distribution Width CV 13.7 % (11.6-14.6); RBC Distribution Width SD 46.4 fl (35.1-43.9); Red Blood Count 4.34 M/mm3 (4.2-5.4); White Blood Count 13.3 K/mm3 (4.4-11.0)
[2024-02-18] MEDS: Ondansetron 4 MG/2 ML Vial IV (23:06)
[2024-02-18] MEDS: Morphine 4 MG/ML Syringe IV (23:06)
[2024-02-18] MEDS: 0.9% Normal Saline (1000mL) 1,000 ML 999 ML IV (23:06)
[2024-02-18] MEDS: Piperacil/Tazobactam 3.375 GM in 0.9% Normal Saline (50mL MB+) 50 ML IV (23:07)
[2024-02-18 23:15] LABS: Bacteria 0 SEEN /hpf (None Seen); Mucous, Urine 0 SEEN /hpf (<or=2+); Red Blood Cells-Urine 0 SEEN /hpf (0-5); Squamous Epithelial Cells - UA 0 SEEN /hpf (5-10); White Blood Cells 0 SEEN /hpf (0-5)
[2024-02-18 23:17] LABS: Color, Urine Yellow (Yellow); Glucose, Dipstick Normal (Normal); Ketone-Dipstick Negative (Negative); Leukocyte Esterase-Dipstick Negative /ul (Negative); Nitrite-Dipstick Negative (Negative); Occult Blood-Urine Negative /ul (Negative); Protein-Dipstick Negative (Negative); Specific Gravity, Urine 1.005 (1.002-1.030); Urine Bilirubin Dipstick Negative (Negative); Urine Clarity Clear (Clear); Urine Urobilinogen Normal (Normal); Urine pH 6.5 (5.0 - 8.0)
[2024-02-18 23:24] LABS: AST(SGOT) 14 U/L (15-37); Alanine Aminotransfer ALT/SGPT 23 U/L (13-56); Albumin, Serum 3.3 g/dL (3.2-5.0); Alkaline Phosphatase 121 U/L (45-117); Anion Gap 5 (5-15); BUN 11 mg/dL (7-18); BUN/Creat Ratio 17.6 RATIO (10-20); Calcium,Total 8.7 mg/dL (8.5-10.1); Chloride 109 mmol/L (98-107); Creatinine, Serum 0.62 mg/dL (0.55-1.02); EST Glomerular Filtration Rate 105 mL/min (>60); Est Glom Filt Rate - Afr Amer 127 mL/min (>60); Estimated Creatinine Clearance 120.11 ml/min; Globulin 3.8 g/dL (2.2-4.2); Glucose 71 mg/dL (74-106); Lipase 34 U/L (13-75); Potassium 3.3 mmol/L (3.5-5.1); Protein, Total 7.1 g/dL (6.4-8.2); Sodium Level 139 mmol/L (136-145)
[2024-02-18 23:31] LABS: Lactic Acid 0.6 mmol/L (0.4-1.9)
[2024-02-18] MEDS: HYDROmorphone 1 MG/ML Syringe IV (23:56)
[2024-02-19] VITALS (7 sets, daily range): BP systolic 109–141; BP diastolic 53–61; PULSE 68–81; RESP 16–18; TEMP 36.3–37; O2SAT 92–99; BMI 37.0
--- NOTE | 2024-02-19 00:33 | EX.ED.DYSGE1 ---
HPI History of Present Illness Chief Complaint: Abd Pain Informant: patient and family Narrative Narrative: Patient is a 58-year-old female with history of insulin-dependent diabetes previous diverticulitis and kidney stone. She states that over the past 2 to 3 days she has been having lower abdominal pain greatest in the left lower quadrant along with constipation. She denies any true fever but states she has felt subjective fevers and chills. She also reports that the pain has been worsening and she has concern that she may be developing diverticulitis once again secondary to this and therefore comes in for evaluation. [facility] Medical History (Updated 02/19/24 @ 00:[address] Elkin Anguiano, DO) Diabetes Kidney stones Tubal ectopic Diverticulitis Home Medications ?Medication ?Instructions ?Recorded ?Last Taken ?Type omeprazole 20 mg capsule,delayed 20 mg PO DAILY 07/21/18 Unknown History release gabapentin 600 mg tablet 600 mg PO TID 02/19/24 Unknown History insulin glargine 100 unit/mL (3 84 unit subcut QHS 02/19/24 Unknown History mL) subcutaneous pen (Lantus Solostar U-100 Insulin) insulin lispro 200 unit/mL (3 mL) See Rx Instructions subcut .COMPLEX 02/19/24 Unknown History subcutaneous pen (Humalog KwikPen U-200 Insulin) linaclotide 290 mcg capsule 290 mcg PO DAILY 02/19/24 Unknown History (Linzess) lisinopril 2.5 mg tablet 2.5 mg PO DAILY 02/19/24 Unknown History rosuvastatin 20 mg tablet 20 mg PO DAILY 02/19/24 Unknown History tirzepatide 10 mg/0.5 mL 10 mg subcut QWEEK 02/19/24 02/16/24 History subcutaneous pen injector (Mounjaro) Allergy/AdvReac Type Severity Reaction Status Date / Time lansoprazole (From Prevacid) Allergy Rash Verified 02/18/24 22:20 Social History Smoking Status: Current every day smoker tobacco type: cigarettes ROS ROS ED Constitutional Constitutional ED: Reports chills, fever(s) and subjective ENT ENT ED: Denies sore throat Cardiovascular Cardiovascular: Denies chest pain Respiratory/Chest Respiratory/Chest: Denies cough or dyspnea Gastrointestinal Gastrointestinal: Reports abdominal pain, constipation and nausea; Denies diarrhea or vomiting Genitourinary Genitourinary ED: Denies dysuria or hematuria Musculoskeletal Musculoskeletal: Denies back pain or myalgias Integumentary Denies rash Neurologic Neurologic: Denies headache(s) Hematologic/Lymphatic Hematologic/Lymphatic: Denies easy bleeding or easy bruising EXAM Physical Exam Const Vital Signs: 02/18/24 22:18 Temperature 97.8 F Temperature Source Oral Pulse Rate 81 Respiratory Rate 16 Blood Pressure 196/77 H Blood Pressure Mean 116 Pulse Ox 99 Oxygen Delivery Method Room Air Positive well nourished, well developed and obese General Appearance ED: well developed; Negative for pallor Nutritional Appearance: obese HEENT Reports moist mucous membranes HEENT Narrative: No tongue or lip swelling no oral lesions no airway edema or compromise No secondary findings in the posterior pharynx to suggest infection Eyes PERRL and EOMs intact bilaterally General Eye ED: Negative for scleral icterus Neck supple Neck Narrative: No nuchal rigidity or meningeal signs Resp normal respiratory effort and clear to auscultation bilaterally Cardio regular rate and regular rhythm Rate: other Other Details: Heart is regular rate and rhythm without murmurs rubs or gallop Radial and carotid pulses are equal and symmetric GI non-distended GI Narrative: Abdomen is obese soft and nondistended with hypoactive bowel sounds. There is pain on palpation in the left lower quadrant but no voluntary guarding or rigidity or peritoneal signs. No increased tympany. No fluid wave. No pulsatile mass. Auscultation: hypoactive bowel sounds Palpation: soft Back/Spine no CVA tenderness Extremity normal to inspection Neuro oriented x3, CN's II-XII intact bilaterally and no sensory deficits noted Sensorium / Orientation: alert Motor Exam: strength 5/5 throughout Psych mental status grossly normal Skin no rashes or lesions noted General Skin Exam: Negative for jaundice or pallor MDM MDM MDM Narrative Medical decision making narrative: Patient arrived to the ER hypertensive but otherwise with stable vitals. She reported increasing pain below the lower abdomen and in the left lower quadrant and therefore there is concern that this could be diverticulitis versus colitis versus kidney stone versus UTI versus pyelonephritis. Secondary to this basic labs with urine sample and a CT scan with IV contrast were ordered. Labs showed leukocytosis at 13.3 with left shift as absolute neutrophil count is elevated 9.2. The remainder the labs revealed no clinically significant changes. Urine shows no blood going against kidney stone or no signs of bacteria going against UTI/pyelonephritis. CT scan confirmed diverticulitis and there was potential of a perforation. Secondary to this the case was discussed with general surgeon Dr. Briggs. He reviewed the CT scan and does concur with the radiologist and recommends admission for continued IV antibiotics and pain control and to monitor progression of symptoms. Plan of care was discussed with the patient and she is agreeable to it and therefore be admitted to the general surgeon service at this time for further care History & Record Review Discussion w/independent historian: Patient Lab Data Attestation: I reviewed the patient's lab results. Labs: Laboratory Results - last 24 hr 02/18/24 02/18/24 22:56 23:11 WBC 13.3 H RBC 4.34 Hgb 13.1 Hct 40.1 MCV 92.4 MCH 30.2 MCHC 32.7 RDW Std Deviation 46.4 H RDW Coeff of Matt 13.7 Plt Count 295 MPV 10.8 Immature Gran % (Auto) 0.400 Neut % (Auto) 69.1 Lymph % (Auto) 20.7 [place] % (Auto) 7.5 Eos % (Auto) 1.8 Baso % (Auto) 0.5 Absolute Neuts (auto) 9.2 H Absolute Lymphs (auto) 2.75 Nucleated RBC % 0 Sodium 139 Potassium 3.3 L Chloride 109 H Carbon Dioxide 25.0 Anion Gap 5 BUN 11 Creatinine 0.62 Estim Creat Clear Calc 120.11 Est GFR (MDRD) Af Amer 127 Est GFR (MDRD) Non-Af 105 BUN/Creatinine Ratio 17.6 Glucose 71 L Lactic Acid 0.6 Calcium 8.7 Total Bilirubin 0.20 Direct Bilirubin 0.10 AST 14 L ALT 23 Alkaline Phosphatase 121 H Total Protein 7.1 Albumin 3.3 Globulin 3.8 Lipase 34 Urine Color Yellow Urine Clarity Clear Urine pH 6.5 Ur Specific [place] 1.005 Urine Protein Negative Urine Glucose (UA) Normal Urine Ketones Negative Urine Occult Blood Negative Urine Nitrite Negative Urine Bilirubin Negative Urine Urobilinogen Normal Ur Leukocyte Esterase Negative Urine RBC 0 SEEN Urine WBC 0 SEEN Ur Squamous Epith Cells 0 SEEN Urine Bacteria 0 SEEN Urine Mucus 0 SEEN Radiography Diagnostic Testing: Clinical Impression(s) from Imaging Studies Abdomen/Pelvis CT 02/18/24 22:47 IMPRESSION: 1. Findings most consistent with acute diverticulitis of the sigmoid colon. Underlying malignancy cannot be entirely excluded. Possible localized perforation without abscess versus air containing within a diverticulum. No large volume pneumoperitoneum. 2. Hepatomegaly. Electronically Signed: Jose Perez DO at 23:56 EDT , ADDENDUM: 02/19/24 0012 IMPRESSION: 1. Findings most consistent with acute diverticulitis of the sigmoid colon. Underlying malignancy cannot be entirely excluded. Possible localized perforation without abscess versus air containing within a diverticulum. No large volume pneumoperitoneum. 2. Hepatomegaly. N.B. : The above Results were Read Back by Jose Perez DO to Elkin Anguiano MD, and understanding confirmed on 02/19/2024 00:05:57 (ET). Electronically Signed: Jose Perez DO at 23:56 EDT , Management Discussion w/another healthcare provider: Academic Affairs Dean Discharge Plan Dx/Rx/DC Orders Clinical Impression: Diverticulitis, Diabetes mellitus, type II, Hyperlipidemia Disposition Disposition: Acute Care Hospital [facility]
[2024-02-19] MEDS: HYDROmorphone 0.5 MG/0.5 ML SYRINGE IV (00:49)
[2024-02-19] MEDS: 0.9% Normal Saline (1000mL) 1,000 ML 125 ML IV ×2 (00:49→08:51)
[2024-02-19] MEDS: Ketorolac 15 MG/ML Vial IV ×2 (01:37→15:31)
[2024-02-19] MEDS: Acetaminophen 325 MG Tablet 650 MG PO ×3 (03:35→20:10)
[2024-02-19] MEDS: Ondansetron 4 MG/2 ML Vial IV ×2 (03:36→14:07)
[2024-02-19] MEDS: Piperacil/Tazobactam 3.375 GM in 0.9% Normal Saline (50mL MB+) 50 ML IV ×3 (05:40→21:42)
[2024-02-19 07:00] LABS: Absolute Lymphocyte Count 1.65 X10^3/uL (0.83-4.51); Absolute Neutrophil Count 9.5 X10^3/uL (2.0-7.7); Basophil# 0.04 X10^3/uL; Basophil% 0.3 % (0-1); Eosinophil# 0.12 X10^3/uL; Hematocrit 36.8 % (37-47); Lymphocyte # 1.65 X10^3/ul (0.83-4.51); Lymphocyte % 13.4 % (19-41); Mean Corp Hgb Conc 32.6 g/dL (32-36); Mean Corpuscular Hgb 30.5 pg (27.0-32.0); Mean Corpuscular Volume 93.4 fL (81-99); Mean Platelet Vol. 10.9 fl (6.2-12.0); Monocyte# 0.99 X10^3/uL; NRBC Flagged by Analyzer 0 % (0-5); Neutrophil # 9.46 X10^3/uL (2.7-7.7); Platelet Count 269 K/mm3 (150-450); RBC Distribution Width CV 13.9 % (11.6-14.6); RBC Distribution Width SD 47.7 fl (35.1-43.9); Red Blood Count 3.94 M/mm3 (4.2-5.4); White Blood Count 12.3 K/mm3 (4.4-11.0)
[2024-02-19 07:14] LABS: Anion Gap 4 (5-15); BUN 9 mg/dL (7-18); BUN/Creat Ratio 14.6 RATIO (10-20); Calcium,Total 8.2 mg/dL (8.5-10.1); Chloride 114 mmol/L (98-107); Creatinine, Serum 0.62 mg/dL (0.55-1.02); EST Glomerular Filtration Rate 107 mL/min (>60); Est Glom Filt Rate - Afr Amer 129 mL/min (>60); Estimated Creatinine Clearance 119.32 ml/min; Glucose 73 mg/dL (74-106); Potassium 3.7 mmol/L (3.5-5.1); Sodium Level 141 mmol/L (136-145)
--- NOTE | 2024-02-19 08:17 | PCM.HP.STD ---
HPI - General General Date of Admission: 02/19/24 HPI Narrative ALCIDES RUIZ, is a 58 F who presents with recurrent diverticulitis. The patient reports she has had about 5 episodes of diverticulitis in the past including hospitalizations. She has never had surgery. Her last colonoscopy was 1 to 2 years ago and was normal. Patient reports that yesterday she started having lower abdominal pain. She denies nausea or vomiting. She denies fevers or chills. [facility] Medical History (Updated 02/19/24 @ 01:15 by Mabel Aragon) Fibromyalgia Arthritis Diabetes Kidney stones Tubal ectopic Diverticulitis Home Medications ?Medication ?Instructions ?Recorded ?Last Taken ?Type omeprazole 20 mg capsule,delayed 20 mg PO DAILY gerd 07/21/18 Unknown History release gabapentin 600 mg tablet 600 mg PO TID pain 02/19/24 Unknown History insulin glargine 100 unit/mL (3 84 unit subcut QHS diabetes 02/19/24 Unknown History mL) subcutaneous pen (Lantus Solostar U-100 Insulin) insulin lispro 200 unit/mL (3 mL) See Rx Instructions subcut 02/19/24 Unknown History subcutaneous pen (Humalog KwikPen .COMPLEX diabetes U-200 Insulin) linaclotide 290 mcg capsule 290 mcg PO DAILY ibs 02/19/24 Unknown History (Linzess) lisinopril 2.5 mg tablet 2.5 mg PO DAILY bp 02/19/24 Unknown History rosuvastatin 20 mg tablet 20 mg PO DAILY hld 02/19/24 Unknown History tirzepatide 10 mg/0.5 mL 10 mg subcut QWEEK diabetes 02/19/24 02/16/24 History subcutaneous pen injector (Mounjaro) Allergy/AdvReac Type Severity Reaction Status Date / Time lansoprazole (From Prevacid) Allergy Rash Verified 02/18/24 22:20 Social History Smoking Status: Current every day smoker tobacco type: cigarettes ROS Constitutional Constitutional: Denies anorexia, chills, fatigue or fever(s) Eyes Eyes: Denies blurry vision ENT HEENT: Denies abnormal hearing Cardiovascular Cardiovascular: Denies chest pain Respiratory/Chest Respiratory/Chest: Denies cough or dyspnea Gastrointestinal Gastrointestinal: Reports abdominal pain; Denies constipation, diarrhea, nausea or vomiting Genitourinary Genitourinary: Denies change in urinary stream Musculoskeletal Musculoskeletal: Denies abnormal gait Integumentary Integumentary: Denies jaundice or new lesions Neurologic Neurologic: Denies abnormal gait Vital Signs Vital Signs Vital Signs: 02/18/24 22:18 02/19/24 00:17 02/19/24 00:18 Temperature 97.8 F 97.9 F 97.9 F Temperature Source Oral Oral Pulse Rate 81 80 80 Respiratory Rate 16 16 16 Blood Pressure 196/77 H 128/56 H 128/56 H Blood Pressure Mean 116 80 80 Blood Pressure Source Blood Pressure Position Blood Pressure Location Pulse Ox 99 97 97 Oxygen Delivery Method Room Air Room Air 02/19/24 00:59 02/19/24 03:15 Temperature 97.4 F L 97.8 F Temperature Source Oral Oral Pulse Rate 76 73 Respiratory Rate 17 16 Blood Pressure 141/58 H 112/54 L Blood Pressure Mean 85 73 Blood Pressure Source Monitor Monitor Blood Pressure Position Supine Supine Blood Pressure Location Right Arm Left Arm Pulse Ox 95 92 Oxygen Delivery Method Room Air Room Air Weight Weight: 222 lb 10.67 oz Body Mass Index (BMI) 37.0 Physical Exam Const oriented x3 and no apparent distress Resp normal respiratory effort Cardio regular rate and regular rhythm GI soft to palpation Palpation: tender LLQ and RLQ Results Lab / Micro Data 02/19/24 06:31 02/19/24 06:31 Labs: Laboratory Results - last 24 hr 02/18/24 22:56: WBC 13.3 H, RBC 4.34, Hgb 13.1, Hct 40.1, MCV 92.4, MCH 30.2, MCHC 32.7, RDW Std Deviation 46.4 H, RDW Coeff of Matt 13.7, Plt Count 295, MPV 10.8, Immature Gran % (Auto) 0.400, Neut % (Auto) 69.1, Lymph % (Auto) 20.7, [place] % (Auto) 7.5, Eos % (Auto) 1.8, Baso % (Auto) 0.5, Absolute Neuts (auto) 9.2 H, Absolute Lymphs (auto) 2.75, Nucleated RBC % 0, Sodium 139, Potassium 3.3 L, Chloride 109 H, Carbon Dioxide 25.0, Anion Gap 5, BUN 11, Creatinine 0.62, Estim Creat Clear Calc 120.11, Est GFR (MDRD) Af Amer 127, Est GFR (MDRD) Non-Af 105, BUN/Creatinine Ratio 17.6, Glucose 71 L, Lactic Acid 0.6, Calcium 8.7, Total Bilirubin 0.20, Direct Bilirubin 0.10, AST 14 L, ALT 23, Alkaline Phosphatase 121 H, Total Protein 7.1, Albumin 3.3, Globulin 3.8, Lipase 34 02/18/24 23:11: Urine Color Yellow, Urine Clarity Clear, Urine pH 6.5, Ur Specific [place] 1.005, Urine Protein Negative, Urine Glucose (UA) Normal, Urine Ketones Negative, Urine Occult Blood Negative, Urine Nitrite Negative, Urine Bilirubin Negative, Urine Urobilinogen Normal, Ur Leukocyte Esterase Negative, Urine RBC 0 SEEN, Urine WBC 0 SEEN, Ur Squamous Epith Cells 0 SEEN, Urine Bacteria 0 SEEN, Urine Mucus 0 SEEN 02/19/24 06:31: WBC 12.3 H, RBC 3.94 L, Hgb 12.0, Hct 36.8 L, MCV 93.4, MCH 30.5, MCHC 32.6, RDW Std Deviation 47.7 H, RDW Coeff of Matt 13.9, Plt Count 269, MPV 10.9, Immature Gran % (Auto) 0.300, Neut % (Auto) 77.0 H, Lymph % (Auto) 13.4 L, [place] % (Auto) 8.0, Eos % (Auto) 1.0, Baso % (Auto) 0.3, Absolute Neuts (auto) 9.5 H, Absolute Lymphs (auto) 1.65, Nucleated RBC % 0, Sodium 141, Potassium 3.7, Chloride 114 H, Carbon Dioxide 22.0, Anion Gap 4 L, BUN 9, Creatinine 0.62, Estim Creat Clear Calc 119.32, Est GFR (MDRD) Af Amer 129, Est GFR (MDRD) Non-Af 107, BUN/Creatinine Ratio 14.6, Glucose 73 L, Calcium 8.2 L Imaging Radiology Impression Abdomen/Pelvis CT 02/18/24 22:47 IMPRESSION: 1. Findings most consistent with acute diverticulitis of the sigmoid colon. Underlying malignancy cannot be entirely excluded. Possible localized perforation without abscess versus air containing within a diverticulum. No large volume pneumoperitoneum. 2. Hepatomegaly. Electronically Signed: Jose Perez, at 23:56 EDT , ADDENDUM: 02/19/24 0012 IMPRESSION: 1. Findings most consistent with acute diverticulitis of the sigmoid colon. Underlying malignancy cannot be entirely excluded. Possible localized perforation without abscess versus air containing within a diverticulum. No large volume pneumoperitoneum. 2. Hepatomegaly. N.B. : The above Results were Read Back by Jose Perez DO to Elkin Anguiano MD, and understanding confirmed on 02/19/2024 00:05:57 (ET). Electronically Signed: Jose Perez DO at 23:56 EDT , Assessment & Plan Assessment/Plan (1) Diverticulitis: PLAN: Patient has diverticulitis of the sigmoid colon with possible microperforation. Continue n.p.o. and IV fluids and IV antibiotics until pain resolves. Replating potassium. I will allow her to have sips with her home meds. Patient is diabetic and I will start a sliding scale. Roland Briggs MD Pager: [facility] [address] [place] [address], [address] [place] [address] Office:
[2024-02-19] MEDS: HYDROmorphone 1 MG/ML Syringe IV ×5 (08:50→23:22)
[2024-02-19] MEDS: Pantoprazole Sodium 20 MG Tablet PO (08:51)
[2024-02-19] MEDS: Potassium Chloride 10mEq/100mL 10 MEQ/100 ML IV.SOLN. 100 MEQ IV BOLUS ×3 (10:19→12:30)
--- NOTE | 2024-02-19 11:28 | CASEMGMT ---
RN CM Assessment Face to Face with patient for initial transition planning/care coordination assessment. RN CM introduced self and role at [facility], pt voices understanding. Pt is A&Ox4 and is resting comfortably in bed and is calm. Care providers, pharmacy, and demographics verified. Admitting dx: Diverticulitis PCP: Ivan Florez Specialists: Dr. Rodríguez Rodriguez (Gen Surgeon) Preferred Pharmacy: [facility] Insurance: [facility] Prescription Benefit: Yes LNOK: Brady Manley (H), Ana Manley (Swati) Living Arrangements: Pt lives with her in a two story home with 2 steps to enter ADLs/IADLs: Ind Transportation: Self, DME: Continuous blood glucose monitor. Glucometer and sufficient supplies. BP Cuff. Pulse ox. HHC/SNF: Denies history or needs Pt?s goal: Home Plan: Home no needs. 6-click is 24. Pt denies homegoing needs and states that she does not have any further questions or concerns at this time. CM to continue to follow. Jean Paul Metzger RN, CM
[2024-02-19 11:45] LABS: Bedside Glucose 66 mg/dL (74-106)
--- NOTE | 2024-02-19 11:55 | NURSING ---
talked with Primary RN Nova. lab back up ordered at her request, lab notififed
[2024-02-19] MEDS: Dextrose 5%-Lactated Ringers 1,000 ML 125 ML IV ×2 (11:57→19:59)
[2024-02-19 12:39] LABS: Glucose 93 mg/dL (74-106)
[2024-02-19 12:41] LABS: Bedside Glucose 94 mg/dL (74-106)
[2024-02-19] MEDS: Gabapentin 600 MG Tablet PO ×2 (14:18→21:42)
[2024-02-19 17:41] LABS: Bedside Glucose 85 mg/dL (74-106)
[2024-02-19] MEDS: 0.9% Saline Lock 10 ML Syringe IV (18:41)
[2024-02-19] MEDS: Atorvastatin Calcium 40 MG Tablet PO (21:42)
[2024-02-19 23:41] LABS: Bedside Glucose 89 mg/dL (74-106)
[2024-02-20] VITALS (7 sets, daily range): BP systolic 124–146; BP diastolic 58–73; PULSE 61–74; RESP 16–18; TEMP 36.6–36.9; O2SAT 92–97
[2024-02-20] MEDS: HYDROmorphone 1 MG/ML Syringe IV ×5 (02:24→22:34)
[2024-02-20] MEDS: Dextrose 5%-Lactated Ringers 1,000 ML 125 ML IV ×3 (03:02→19:00)
[2024-02-20] MEDS: Piperacil/Tazobactam 3.375 GM in 0.9% Normal Saline (50mL MB+) 50 ML IV ×3 (05:46→21:36)
[2024-02-20] MEDS: Gabapentin 600 MG Tablet PO ×3 (05:47→21:36)
[2024-02-20 06:05] LABS: Absolute Lymphocyte Count 1.86 X10^3/uL (0.83-4.51); Absolute Neutrophil Count 5.5 X10^3/uL (2.0-7.7); Basophil# 0.06 X10^3/uL; Basophil% 0.7 % (0-1); Eosinophil# 0.19 X10^3/uL; Eosinophils% 2.3 % (0-5); Hematocrit 35.5 % (37-47); Hemoglobin 11.1 g/dL (12.0-15.0); Lymphocyte # 1.86 X10^3/ul (0.83-4.51); Lymphocyte % 22.4 % (19-41); Mean Corp Hgb Conc 31.3 g/dL (32-36); Mean Corpuscular Hgb 30.7 pg (27.0-32.0); Mean Corpuscular Volume 98.1 fL (81-99); Mean Platelet Vol. 12.1 fl (6.2-12.0); Monocyte# 0.69 X10^3/uL; Monocyte% 8.3 % (0-10); NRBC Flagged by Analyzer 0 % (0-5); Neutrophil # 5.45 X10^3/uL (2.7-7.7); Neutrophil % 65.6 % (47-70); POSITIVE COUNT YES; Platelet Count 108 K/mm3 (150-450); RBC Distribution Width CV 14.2 % (11.6-14.6); RBC Distribution Width SD 51.6 fl (35.1-43.9); Red Blood Count 3.62 M/mm3 (4.2-5.4); White Blood Count 8.3 K/mm3 (4.4-11.0)
[2024-02-20 06:10] LABS: Bedside Glucose 109 mg/dL (74-106)
[2024-02-20 06:12] LABS: Differential Indicated SCAN CRITERIA MET
[2024-02-20 06:13] LABS: Differential Comment SCANNED
[2024-02-20 06:28] LABS: Anion Gap 4 (5-15); BUN 9 mg/dL (7-18); BUN/Creat Ratio 13.6 RATIO (10-20); Calcium,Total 8.3 mg/dL (8.5-10.1); Chloride 112 mmol/L (98-107); Creatinine, Serum 0.66 mg/dL (0.55-1.02); EST Glomerular Filtration Rate 98 mL/min (>60); Est Glom Filt Rate - Afr Amer 119 mL/min (>60); Estimated Creatinine Clearance 112.09 ml/min; Glucose 96 mg/dL (74-106); Potassium 3.6 mmol/L (3.5-5.1); Sodium Level 138 mmol/L (136-145)
--- NOTE | 2024-02-20 06:52 | PCM.PN.SRG ---
Subjective Subjective Patient states that she is still having similar pain today as previous days. No fevers or chills. No nausea or vomiting. Pain is no worse today than previous days. Objective Data Objective Data Vital Signs: Vital Signs Temp Pulse Resp BP Pulse Ox O2 Del Method 98.1 F 65 16 128/58 H 96 Room Air 02/20/24 03:30 02/20/24 03:30 02/20/24 03:30 02/20/24 03:30 02/20/24 03:30 02/20/24 03:30 Oxygen Delivery Method Room Air Weight: 222 lb 10.67 oz Body Mass Index (BMI) 37.0 Intake & Output: Intake and Output for Last 24 Hours 02/18/24 02/19/24 02/20/24 23:59 23:59 23:59 Intake Total 50 / 50 3923.75 / 3923.75 1031.25 / 1031.25 Balance 50 / 50 3923.75 / 3923.75 1031.25 / 1031.25 Lab / Micro Data 02/20/24 05:42 02/20/24 05:42 Labs: Laboratory Results - last 24 hr 02/19/24 06:31: WBC 12.3 H, RBC 3.94 L, Hgb 12.0, Hct 36.8 L, MCV 93.4, MCH 30.5, MCHC 32.6, RDW Std Deviation 47.7 H, RDW Coeff of Matt 13.9, Plt Count 269, MPV 10.9, Immature Gran % (Auto) 0.300, Neut % (Auto) 77.0 H, Lymph % (Auto) 13.4 L, [place] % (Auto) 8.0, Eos % (Auto) 1.0, Baso % (Auto) 0.3, Absolute Neuts (auto) 9.5 H, Absolute Lymphs (auto) 1.65, Nucleated RBC % 0, Sodium 141, Potassium 3.7, Chloride 114 H, Carbon Dioxide 22.0, Anion Gap 4 L, BUN 9, Creatinine 0.62, Estim Creat Clear Calc 119.32, Est GFR (MDRD) Af Amer 129, Est GFR (MDRD) Non-Af 107, BUN/Creatinine Ratio 14.6, Glucose 73 L, Calcium 8.2 L 02/19/24 11:22: POC Glucose 66 L 02/19/24 12:09: Glucose 93 02/19/24 12:24: POC Glucose 94 02/19/24 17:24: POC Glucose 85 02/19/24 23:17: POC Glucose 89 02/20/24 05:42: WBC 8.3, RBC 3.62 L, Hgb 11.1 L, Hct 35.5 L, MCV 98.1 D, MCH 30.7, MCHC 31.3 L, RDW Std Deviation 51.6 H, RDW Coeff of Matt 14.2, Plt Count 108 L, MPV 12.1 H, Immature Gran % (Auto) 0.700, Neut % (Auto) 65.6, Lymph % (Auto) 22.4, [place] % (Auto) 8.3, Eos % (Auto) 2.3, Baso % (Auto) 0.7, Absolute Neuts (auto) 5.5, Absolute Lymphs (auto) 1.86, Nucleated RBC % 0, Differential Comment SCANNED, Sodium 138, Potassium 3.6, Chloride 112 H, Carbon Dioxide 22.0, Anion Gap 4 L, BUN 9, Creatinine 0.66, Estim Creat Clear Calc 112.09, Est GFR (MDRD) Af Amer 119, Est GFR (MDRD) Non-Af 98, BUN/Creatinine Ratio 13.6, Glucose 96, Calcium 8.3 L 02/20/24 05:51: POC Glucose 109 H Physical Exam Const oriented x3 and no apparent distress GI GI Narrative: Abdomen is soft, obese, and nondistended. She does have mild tenderness to palpation in the left lower quadrant. No rebound or guarding. Assessment & Plan Assessment/Plan (1) Diverticulitis: PLAN: Plan The patient is a 58-year-old female admitted with abdominal pain. CT scan imaging indicated sigmoid diverticulitis with microperforation. She is clinically stable. Pain is still present but not worsening. Recommend continued IV antibiotics. I explained her the importance of remaining n.p.o. until her symptoms improved. She is agreeable to this plan. White count within the normal range. I encouraged ambulation as tolerated. Dr. Landrum to cover weekend and next Friday Charges/Coding Visit Charges Inpatient E&M: 92364 Subs Hosp L2
[2024-02-20] MEDS: Lisinopril 2.5 MG Tablet PO (09:41)
[2024-02-20] MEDS: Pantoprazole Sodium 20 MG Tablet PO (09:41)
[2024-02-20] MEDS: Ketorolac 15 MG/ML Vial IV ×2 (09:41→21:37)
[2024-02-20] MEDS: 0.9% Saline Lock 10 ML Syringe IV ×3 (09:43→22:30)
[2024-02-20] MEDS: Acetaminophen 325 MG Tablet 650 MG PO ×2 (11:36→21:37)
[2024-02-20 12:30] LABS: Bedside Glucose 112 mg/dL (74-106)
[2024-02-20 18:24] LABS: Bedside Glucose 113 mg/dL (74-106)
[2024-02-20] MEDS: Atorvastatin Calcium 40 MG Tablet PO (21:36)
[2024-02-20] MEDS: Ondansetron 4 MG/2 ML Vial IV (22:09)
[2024-02-20 23:49] LABS: Bedside Glucose 118 mg/dL (74-106)
[2024-02-21] MEDS: Acetaminophen 325 MG Tablet 650 MG PO ×2 (04:18→20:18)
[2024-02-21] MEDS: Dextrose 5%-Lactated Ringers 1,000 ML 125 ML IV ×2 (04:19→11:27)
[2024-02-21 04:23] VITALS: BP 136/73; PULSE 60; RESP 20; TEMP 36.8; O2SAT 96
[2024-02-21] MEDS: Gabapentin 600 MG Tablet PO ×3 (06:16→22:19)
[2024-02-21] MEDS: Piperacil/Tazobactam 3.375 GM in 0.9% Normal Saline (50mL MB+) 50 ML IV ×3 (06:17→22:18)
[2024-02-21 06:29] LABS: Absolute Lymphocyte Count 1.64 X10^3/uL (0.83-4.51); Absolute Neutrophil Count 4.4 X10^3/uL (2.0-7.7); Basophil# 0.04 X10^3/uL; Basophil% 0.6 % (0-1); Eosinophil# 0.24 X10^3/uL; Eosinophils% 3.5 % (0-5); Hematocrit 32.9 % (37-47); Hemoglobin 10.6 g/dL (12.0-15.0); Lymphocyte # 1.64 X10^3/ul (0.83-4.51); Lymphocyte % 23.8 % (19-41); Mean Corp Hgb Conc 32.2 g/dL (32-36); Mean Corpuscular Hgb 30.4 pg (27.0-32.0); Mean Corpuscular Volume 94.3 fL (81-99); Monocyte# 0.55 X10^3/uL; NRBC Flagged by Analyzer 0 % (0-5); Neutrophil # 4.39 X10^3/uL (2.7-7.7); Neutrophil % 63.7 % (47-70); Platelet Count 220 K/mm3 (150-450); RBC Distribution Width CV 13.5 % (11.6-14.6); RBC Distribution Width SD 46.5 fl (35.1-43.9); Red Blood Count 3.49 M/mm3 (4.2-5.4); White Blood Count 6.9 K/mm3 (4.4-11.0)
[2024-02-21 07:02] LABS: Anion Gap 6 (5-15); BUN 9 mg/dL (7-18); BUN/Creat Ratio 15.8 RATIO (10-20); Calcium,Total 8.3 mg/dL (8.5-10.1); Chloride 111 mmol/L (98-107); Creatinine, Serum 0.57 mg/dL (0.55-1.02); EST Glomerular Filtration Rate 116 mL/min (>60); Est Glom Filt Rate - Afr Amer 141 mL/min (>60); Estimated Creatinine Clearance 129.79 ml/min; Glucose 130 mg/dL (74-106); Potassium 3.5 mmol/L (3.5-5.1); Sodium Level 140 mmol/L (136-145)
[2024-02-21 07:16] LABS: Bedside Glucose 132 mg/dL (74-106)
[2024-02-21] MEDS: HYDROmorphone 1 MG/ML Syringe IV ×2 (07:48→13:01)
[2024-02-21] MEDS: Pantoprazole Sodium 20 MG Tablet PO (07:49)
[2024-02-21] MEDS: Lisinopril 2.5 MG Tablet PO (07:49)
--- NOTE | 2024-02-21 08:58 | CT_ITS ---
STUDY: CT ABDOMEN AND PELVIS WITH CONTRAST REASON FOR EXAM: Female, 58 years old. Pain. Diverticulitis. RADIATION DOSAGE (If Supplied By Facility): CTDIvol = ( 20.33 ) mGy, DLP = ( 1302.70 ) mGycm TECHNIQUE: Transaxial images were obtained through the abdomen and pelvis with oral contrast. 100 ml of Isovue-300 contrast was administered. Sagittal and coronal images were reconstructed. CT scan performed according to ALARA principles. Automated exposure control used during exam. COMPARISON: Prior study dated: 02/18/2024 FINDINGS: LOWER THORAX: There are trace bilateral pleural effusions with overlying atelectasis. The visualized portions of the heart and pericardium are within normal limits. GALLBLADDER / BILE DUCTS: There are no calcified gallstones present. There is no intrahepatic biliary duct dilatation. The common bile duct is normal in caliber. There are no calcified ductal stones. LIVER: The liver is within normal limits. There are no suspicious hepatic lesions. SPLEEN: The spleen is normal in size. PANCREAS: The pancreas is within normal limits. ADRENAL GLANDS: The adrenal glands are within normal limits. KIDNEYS / BLADDER: There are no renal or ureteral stones. There is no hydronephrosis. There are no focal renal lesions. The urinary bladder is partially distended and appears grossly unremarkable. STOMACH / BOWEL: Normal visualized stomach. There is no bowel obstruction. Again noted are inflammatory changes in the pelvis adjacent to diverticula in the sigmoid colon. This is consistent with acute sigmoid diverticulitis. When compared with the prior exam, the inflammation is slightly decreased. The appendix is visualized and appears normal. PERITONEUM/RETROPERITONEUM: There is a small amount of free fluid. There is no free air or fluid collection. There is no abnormal soft tissue mass identified. There is no abdominal or pelvic lymphadenopathy. VESSELS: The aorta is normal in caliber. The IVC is unremarkable. BONES: There are no destructive osseous lesions. SOFT TISSUES: The visualized soft tissues are within normal limits. CT/Abdomen/Pelvis WITH Contrast IMPRESSION: Redemonstration of acute diverticulitis in the sigmoid colon. When compared with 02/18/2024, the inflammation is slightly decreased. Amount pelvic free fluid. No free air or fluid collection. Trace bilateral pleural effusions with overlying atelectasis. Electronically Signed: Raza Cook MD at 13:54 EDT ,
[2024-02-21 09:50] VITALS: BP 145/63; PULSE 61; RESP 16; TEMP 36.6; O2SAT 98
[2024-02-21 11:46] LABS: Bedside Glucose 144 mg/dL (74-106)
[2024-02-21 15:13] VITALS: BP 131/50; PULSE 68; RESP 16; TEMP 36.6; O2SAT 94
--- NOTE | 2024-02-21 16:04 | PCM.PN.SRG ---
Subjective Subjective Patient seen and examined during AM rounds. She reported that she is feeling somewhat better. She expressed some dissatisfaction with her pain medication regimen yesterday. Lastly she confirms an appetite. Objective Data Objective Data Vital Signs: Vital Signs Temp Pulse Resp BP Pulse Ox O2 Del Method 98 F 68 16 131/50 H 94 Room Air 02/21/24 15:13 02/21/24 15:13 02/21/24 15:13 02/21/24 15:13 02/21/24 15:13 02/21/24 15:13 Oxygen Delivery Method Room Air Weight: 222 lb 10.67 oz Body Mass Index (BMI) 37.0 Intake & Output: Intake and Output for Last 24 Hours 02/19/24 02/20/24 02/21/24 23:59 23:59 23:59 Intake Total 3923.75 / 3923.75 3083.33 / 3083.33 3460.42 / 3460.42 Output Total 0 / 0 Balance 3923.75 / 3923.75 3083.33 / 3083.33 3460.42 / 3460.42 Lab / Micro Data 02/21/24 06:05 02/21/24 06:05 Labs: Laboratory Results - last 24 hr 02/20/24 18:02: POC Glucose 113 H 02/20/24 21:41: POC Glucose 118 H 02/21/24 06:05: WBC 6.9 02/21/24 06:05: WBC Cancelled, Corrected WBC Cancelled, RBC 3.49 L 02/21/24 06:05: RBC Cancelled, Hgb 10.6 L 02/21/24 06:05: Hgb Cancelled, Hct 32.9 L 02/21/24 06:05: Hct Cancelled, MCV 94.3 02/21/24 06:05: MCV Cancelled, MCH 30.4 02/21/24 06:05: MCH Cancelled, MCHC 32.2 02/21/24 06:05: MCHC Cancelled, RDW Std Deviation 46.5 H 02/21/24 06:05: RDW Std Deviation Cancelled, RDW Coeff of Matt 13.5 02/21/24 06:05: RDW Coeff of Matt Cancelled, Plt Count 220 02/21/24 06:05: Plt Count Cancelled, MPV 11.0 02/21/24 06:05: MPV Cancelled, Immature Gran % (Auto) 0.400 02/21/24 06:05: Immature Gran % (Auto) Cancelled, Neut % (Auto) 63.7 02/21/24 06:05: Neut % (Auto) Cancelled, Lymph % (Auto) 23.8 02/21/24 06:05: Lymph % (Auto) Cancelled, [place] % (Auto) 8.0 02/21/24 06:05: [place] % (Auto) Cancelled, Eos % (Auto) 3.5 02/21/24 06:05: Eos % (Auto) Cancelled, Baso % (Auto) 0.6 02/21/24 06:05: Baso % (Auto) Cancelled, Absolute Neuts (auto) 4.4 02/21/24 06:05: Absolute Neuts (auto) Cancelled, Absolute Lymphs (auto) 1.64 02/21/24 06:05: Absolute Lymphs (auto) Cancelled, Total Counted Cancelled, Neutrophils % (Manual) Cancelled, Band Neutrophils % Cancelled, Lymphocytes % (Manual) Cancelled, Monocytes % (Manual) Cancelled, Eosinophils % (Manual) Cancelled, Basophils % (Manual) Cancelled, Metamyelocytes % Cancelled, Myelocytes % Cancelled, Promyelocytes % Cancelled, Blast Cells % Cancelled, Plasma Cell % (Manual) Cancelled, Other Cells % Cancelled, Nucleated RBC % 0 02/21/24 06:05: Nucleated RBC % Cancelled, Nucleated RBCs/100 WBC Cancelled, Differential Comment Cancelled, Diff Path Review Cancelled, Hypersegmented Neuts Cancelled, Atypical Lymphocytes Cancelled, Reactive Lymphocytes Cancelled, Smudge Cells Cancelled, Toxic Granulation Cancelled, Toxic Vacuolation Cancelled, Dohle Bodies Cancelled, Azeem Rods Cancelled, Platelet Estimate Cancelled, Plt Morphology Comment Cancelled, RBC Morphology Cancelled 02/21/24 06:05: RBC Morphology Cancelled, Polychromasia Cancelled, Hypochromasia Cancelled, Basophilic Stippling Cancelled, Anisocytosis Cancelled, Microcytosis Cancelled, Macrocytosis Cancelled, Spherocytes Cancelled, Sickle Cells Cancelled, Target Cells Cancelled, Tear Drop Cells Cancelled, Ovalocytes Cancelled, Stomatocytes Cancelled, [place] Bodies Cancelled, Salazar Cells Cancelled, Bite Cells Cancelled, Crenated Cell Cancelled, Acanthocytes (Spur) Cancelled, Rouleaux Cancelled, Schistocytes Cancelled, Sodium 140 02/21/24 06:05: Sodium Cancelled, Potassium 3.5 02/21/24 06:05: Potassium Cancelled, Chloride 111 H 02/21/24 06:05: Chloride Cancelled, Carbon Dioxide 23.0 02/21/24 06:05: Carbon Dioxide Cancelled, Anion Gap 6 02/21/24 06:05: Anion Gap Cancelled, BUN 9 02/21/24 06:05: BUN Cancelled, Creatinine 0.57 02/21/24 06:05: Creatinine Cancelled, Estim Creat Clear Calc 129.79 02/21/24 06:05: Estim Creat Clear Calc Cancelled, Est GFR (MDRD) Af Amer 141 02/21/24 06:05: Est GFR (MDRD) Af Amer Cancelled, Est GFR (MDRD) Non-Af 116 02/21/24 06:05: Est GFR (MDRD) Non-Af Cancelled, BUN/Creatinine Ratio 15.8 02/21/24 06:05: BUN/Creatinine Ratio Cancelled, Glucose 130 H 02/21/24 06:05: Glucose Cancelled, Calcium 8.3 L 02/21/24 06:05: Calcium Cancelled 02/21/24 06:15: POC Glucose 132 H 02/21/24 11:25: POC Glucose 144 H Radiography Diagnostic Testing: Radiology Impression Abdomen/Pelvis CT 02/21/24 08:58 IMPRESSION: Redemonstration of acute diverticulitis in the sigmoid colon. When compared with 02/18/2024, the inflammation is slightly decreased. Amount pelvic free fluid. No free air or fluid collection. Trace bilateral pleural effusions with overlying atelectasis. Electronically Signed: Raza Cook MD at 13:54 EDT , Physical Exam Const oriented x3 and no apparent distress Resp normal respiratory effort GI GI Narrative: Nondistended, soft, nontender to palpation of left lower quadrant (or remaining 3 quadrants) Assessment & Plan Assessment/Plan (1) Diverticulitis: PLAN: Plan The patient is a 58-year-old female admitted with concern for complicated sigmoid diverticulitis. She remains clinically stable and pain is significantly improved. In fact her abdominal exam is benign. She did report some pain with movement so I offered to repeat her CT scan which shows some improvement in the inflammation of the sigmoid colon. With this additional objective reassurance I recommended resuming a diet. I also recommended the patient that she utilize her available pain medications perhaps more judiciously as she already struggles with a tendency towards constipation and this may compound that problem and her overarching problem with the diverticulitis. She expresses understanding and agreement. We will start a stool softener today to try to minimize this risk. ?Advance to clear liquid diet ?Continue IV antibiotics ?Recheck labs in a.m. and consider transition to oral antibiotics if tolerated advance to p.o. Antonio Landrum MD General Surgery Endocrine Surgery Pager: [facility] [address] [place] [address] [address] [place] [address] Office: [phone] Charges/Coding Visit Charges Inpatient E&M: 33351 Subs Hosp L2
[2024-02-21 18:05] LABS: Bedside Glucose 125 mg/dL (74-106)
[2024-02-21] MEDS: Docusate Sodium 100 MG Capsule PO (22:19)
[2024-02-21] MEDS: Atorvastatin Calcium 40 MG Tablet PO (22:19)
[2024-02-21 22:24] VITALS: BP 165/78; PULSE 72; RESP 16; TEMP 36.6; O2SAT 96
[2024-02-21 22:49] LABS: Bedside Glucose 101 mg/dL (74-106)
[2024-02-22 03:48] VITALS: BP 152/73; PULSE 69; RESP 16; TEMP 36.6; O2SAT 94
[2024-02-22] MEDS: Acetaminophen 325 MG Tablet 650 MG PO (03:57)
[2024-02-22] MEDS: Dextrose 5%-Lactated Ringers 1,000 ML 50 ML IV (05:39)
[2024-02-22] MEDS: Gabapentin 600 MG Tablet PO ×2 (05:40→13:23)
[2024-02-22] MEDS: Piperacil/Tazobactam 3.375 GM in 0.9% Normal Saline (50mL MB+) 50 ML IV (05:40)
[2024-02-22] MEDS: Insulin Lispro 100 UNIT/ML INSULN.PEN SC (05:54)
[2024-02-22 05:55] LABS: Absolute Lymphocyte Count 1.27 X10^3/uL (0.83-4.51); Absolute Neutrophil Count 3.9 X10^3/uL (2.0-7.7); Basophil# 0.03 X10^3/uL; Basophil% 0.5 % (0-1); Eosinophil# 0.23 X10^3/uL; Eosinophils% 3.9 % (0-5); Hemoglobin 11.1 g/dL (12.0-15.0); Lymphocyte # 1.27 X10^3/ul (0.83-4.51); Lymphocyte % 21.5 % (19-41); Mean Corp Hgb Conc 32.6 g/dL (32-36); Mean Corpuscular Hgb 30.4 pg (27.0-32.0); Mean Corpuscular Volume 93.2 fL (81-99); Mean Platelet Vol. 10.9 fl (6.2-12.0); Monocyte% 8.5 % (0-10); NRBC Flagged by Analyzer 0 % (0-5); Neutrophil # 3.87 X10^3/uL (2.7-7.7); Neutrophil % 65.4 % (47-70); Platelet Count 227 K/mm3 (150-450); RBC Distribution Width CV 13.2 % (11.6-14.6); Red Blood Count 3.65 M/mm3 (4.2-5.4); White Blood Count 5.9 K/mm3 (4.4-11.0)
[2024-02-22] MEDS: 0.9% Saline Lock 10 ML Syringe IV (05:55)
[2024-02-22 06:29] LABS: Anion Gap 4 (5-15); BUN 6 mg/dL (7-18); BUN/Creat Ratio 8.8 RATIO (10-20); Calcium,Total 8.4 mg/dL (8.5-10.1); Chloride 113 mmol/L (98-107); Creatinine, Serum 0.68 mg/dL (0.55-1.02); EST Glomerular Filtration Rate 95 mL/min (>60); Est Glom Filt Rate - Afr Amer 114 mL/min (>60); Estimated Creatinine Clearance 108.79 ml/min; Glucose 186 mg/dL (74-106); Potassium 3.5 mmol/L (3.5-5.1); Sodium Level 141 mmol/L (136-145)
[2024-02-22 07:51] LABS: Bedside Glucose 170 mg/dL (74-106)
--- NOTE | 2024-02-22 08:26 | PCM.PN.SRG ---
Subjective Subjective Patient seen and examined during AM rounds. She shares that she feels incrementally better but is still experiencing some waves of cramping. She initially wondered if she may be developing a urinary tract infection. She reports that she tolerated advancement to liquids yesterday without event. She also reports that she had a small bowel movement this morning that was otherwise normal in character. Objective Data Objective Data Vital Signs: Vital Signs Temp Pulse Resp BP Pulse Ox O2 Del Method 97.8 F 69 16 152/73 H 94 Room Air 02/22/24 03:48 02/22/24 03:48 02/22/24 03:48 02/22/24 03:48 02/22/24 03:48 02/22/24 03:48 Oxygen Delivery Method Room Air Weight: 222 lb 10.67 oz Body Mass Index (BMI) 37.0 Intake & Output: Intake and Output for Last 24 Hours 02/20/24 02/21/24 02/22/24 23:59 23:59 23:59 Intake Total 3083.33 / 3083.33 3810.42 / 4010.42 981.25 / 981.25 Output Total 0 / 0 Balance 3083.33 / 3083.33 3810.42 / 4010.42 981.25 / 981.25 Lab / Micro Data 02/22/24 05:34 02/22/24 05:34 Labs: Laboratory Results - last 24 hr 02/21/24 11:25: POC Glucose 144 H 02/21/24 17:43: POC Glucose 125 H 02/21/24 22:30: POC Glucose 101 02/22/24 05:34: WBC 5.9, RBC 3.65 L, Hgb 11.1 L, Hct 34.0 L, MCV 93.2, MCH 30.4, MCHC 32.6, RDW Std Deviation 45.0 H, RDW Coeff of Matt 13.2, Plt Count 227, MPV 10.9, Immature Gran % (Auto) 0.200, Neut % (Auto) 65.4, Lymph % (Auto) 21.5, [place] % (Auto) 8.5, Eos % (Auto) 3.9, Baso % (Auto) 0.5, Absolute Neuts (auto) 3.9, Absolute Lymphs (auto) 1.27, Nucleated RBC % 0, Sodium 141, Potassium 3.5, Chloride 113 H, Carbon Dioxide 25.0, Anion Gap 4 L, BUN 6 L, Creatinine 0.68, Estim Creat Clear Calc 108.79, Est GFR (MDRD) Af Amer 114, Est GFR (MDRD) Non-Af 95, BUN/Creatinine Ratio 8.8 L, Glucose 186 H, Calcium 8.4 L 02/22/24 05:42: POC Glucose 170 H Radiography Diagnostic Testing: Radiology Impression Abdomen/Pelvis CT 02/21/24 08:58 IMPRESSION: Redemonstration of acute diverticulitis in the sigmoid colon. When compared with 02/18/2024, the inflammation is slightly decreased. Amount pelvic free fluid. No free air or fluid collection. Trace bilateral pleural effusions with overlying atelectasis. Electronically Signed: Raza Cook MD at 13:54 EDT , Physical Exam Const oriented x3 and no apparent distress Resp normal respiratory effort GI GI Narrative: Nondistended, soft, nontender to palpation Assessment & Plan Assessment/Plan (1) Diverticulitis: PLAN: Plan The patient is a 58-year-old female admitted with concern for complicated sigmoid diverticulitis. She remains clinically stable and pain continues to improve. In fact her abdominal exam is benign. CT scan repeated yesterday showed some improvement in the inflammation of the sigmoid colon. With this additional objective reassurance I recommended resuming a diet which she did so without difficulty. She also experienced a bowel movement. With these additional improvements I am recommending advancement to a transitional diet and transitioning her IV antibiotics to oral formulation. She expresses understanding and agreement. ?Advance to transitional diet. (Patient advised to continue at this threshold for a week or 2 posthospitalization) ? Convert to Augmentin 875 mg twice daily?plan for full 7-day course ? Patient tolerates the above changes will plan for discharge to home later today with outpatient follow-up with Dr. Briggs. Antonio Landrum MD General Surgery Endocrine Surgery Pager: [facility] [address] [place] [address], [facility], [address] [place] [id number] Office: [phone] Charges/Coding Visit Charges Inpatient E&M: 89093 Subs Hosp L2
[2024-02-22] MEDS: Docusate Sodium 100 MG Capsule PO (09:04)
[2024-02-22] MEDS: Lisinopril 2.5 MG Tablet PO (09:04)
[2024-02-22] MEDS: Pantoprazole Sodium 20 MG Tablet PO (09:04)
[2024-02-22 09:45] VITALS: BP 152/66; PULSE 60; RESP 16; TEMP 36.6; O2SAT 99
--- NOTE | 2024-02-22 10:43 | DCINST_ITS ---
Discharge Instructions Diet Discharge Diet: Soft diet (low fiber) Activity Discharge Activity: May Drive Dressing / Incision Call your doctor if you observe: Fever of 101 or Higher, Inability to have a bowel movement and Uncontrolled pain Follow Up Care Please Follow Up With: Roland Briggs MD When: 2 weeks post hospital discharge Test Results: Test results from this visit will be discussed in further detail at your follow- up appointment, if applicable. Discharge Plan Admission Admit Date/Time: 02/19/24 00:12 Primary Reason for Your Visit: Acute diverticulitis Attending Provider: Roland Briggs Primary Care Provider: Ivan Florez Discharge Orders/Prescriptions Prescriptions: New amoxicillin-pot clavulanate 875-125 mg Tablet 1 tab PO BID 4 Days Qty: 8 0RF Continued gabapentin 600 mg tablet 600 mg PO TID lisinopril 2.5 mg tablet 2.5 mg PO DAILY rosuvastatin 20 mg tablet 20 mg PO DAILY insulin glargine [Lantus Solostar U-100 Insulin] 100 unit/mL (3 mL) insulin pen 84 unit subcut QHS Patient Comments: has been taking 60 units this week at night due to frequent hypoglycemic episodes at home as of 02/18 Humalog KwikPen Insulin 200 unit/mL (3 mL) insulin pen See Rx Instructions subcut .COMPLEX Protocol: 6. Sliding Scale Insulin Custom Condition: mg/dl range Dose/Route: Number of Units Protocol Text: Custom Sliding Scale Rx Instructions: subcutaneously ; 10 units breakfast (2-4 pm), 10 units lunch (8PM) and 12 units dinner; add 4 units to meal if high carb; up to 54 units total daily Mounjaro 10 mg/0.5 mL pen injector 10 mg subcut QWEEK omeprazole 20 MG capsule 20 mg PO DAILY Held Linzess 290 mcg capsule 290 mcg PO DAILY Hold Instructions: Resume on 03/01/24. continue stool softeners and laxative as needed Referrals / Follow Up: Ivan Florez MD [Primary Care Provider] - Disposition Disposition (needs filled in before D/C Order can be placed): Home, Self Care
--- NOTE | 2024-02-22 11:05 | DS.PCM_ITS ---
Providers Date of Admission: 02/19/24 Primary Care Physician: Dr. Ivan Florez MD Reason For Visit: DIVERTICULITIS WITH MICROPERF Diagnosis Discharge Diagnosis (1) Diverticulitis: Status: Acute Code(s): K57.92 - Diverticulitis of intestine, part unspecified, without perforation or abscess without bleeding Plan The patient is a 58-year-old female admitted with concern for complicated sigmoid diverticulitis. She remains clinically stable and pain continues to improve. In fact her abdominal exam is benign. CT scan repeated yesterday showed some improvement in the inflammation of the sigmoid colon. With this additional objective reassurance I recommended resuming a diet which she did so without difficulty. She also experienced a bowel movement. With these additional improvements I am recommending advancement to a transitional diet and transitioning her IV antibiotics to oral formulation. She expresses understanding and agreement. ?Advance to transitional diet. (Patient advised to continue at this threshold for a week or 2 posthospitalization) ? Convert to Augmentin 875 mg twice daily?plan for full 7-day course ? Patient tolerates the above changes will plan for discharge to home later today with outpatient follow-up with Dr. Briggs. Antonio Landrum MD General Surgery Endocrine Surgery Pager: [facility] [address] [place] [address], [address] [place] [address] Office: [phone] Medications at Discharge Home Medications omeprazole 20 mg capsule,delayed release 20 mg PO DAILY gerd 07/21/18 gabapentin 600 mg tablet 600 mg PO TID pain 02/19/24 insulin glargine 100 unit/mL (3 mL) subcutaneous pen (Lantus Solostar U-100 Insulin) 84 unit subcut [facility] diabetes 02/19/24 insulin lispro 200 unit/mL (3 mL) subcutaneous pen (Humalog KwikPen U-200 Insulin) See Rx Instructions subcut .COMPLEX diabetes 02/19/24 linaclotide 290 mcg capsule (Linzess) 290 mcg PO DAILY ibs 02/19/24 lisinopril 2.5 mg tablet 2.5 mg PO DAILY bp 02/19/24 rosuvastatin 20 mg tablet 20 mg PO DAILY hld 02/19/24 tirzepatide 10 mg/0.5 mL subcutaneous pen injector (Mounjaro) 10 mg subcut QWEEK diabetes 02/19/24 amoxicillin 875 mg-potassium clavulanate 125 mg tablet 1 tab PO BID 4 days #8 tabs 02/22/24 Hospital Course Operations None Procedures None Summary of Care Provided Hospital Course: Patient 58-year-old female who was admitted on 02/19/2024 with diagnosis of recurrent diverticulitis and possible microperforation. Conservative measures were instituted and patient responded accordingly with improvements in her abdominal discomfort and resolution of her leukocytosis with improvements of her abdominal discomfort we also repeated her CT imaging on 02/21/2024 which showed an incremental decrease in the inflammatory change of her sigmoid colon. Given these positive changes a diet was reinstituted and patient was transition to oral antibiotics. She tolerated these latter changes without difficulty as well and discharge to home was granted. Prior to discharge we discussed assuming a soft, low fiber diet for a period of a week or 2 post discharge. Patient is expected to follow-up with PCP and surgery following discharge to confirm resolution. Did briefly discussed the role for surgical management of diverticulitis and offered that patient consider elective segmental colectomy given her recurrent episodes Physical Exam Const alert, oriented x3 and no apparent distress Resp normal respiratory effort GI GI Narrative: Nondistended, soft, nontender to palpation x 4 quadrants Weight / BMI Weight Weight: 222 lb 10.67 oz Body Mass Index (BMI) 37.0 ABG / Lab / Microbiology Data 02/22/24 05:34 02/22/24 05:34 Laboratory: Laboratory Results - last 24 hr 02/21/24 11:25: POC Glucose 144 H 02/21/24 17:43: POC Glucose 125 H 02/21/24 22:30: POC Glucose 101 02/22/24 05:34: WBC 5.9, RBC 3.65 L, Hgb 11.1 L, Hct 34.0 L, MCV 93.2, MCH 30.4, MCHC 32.6, RDW Std Deviation 45.0 H, RDW Coeff of Matt 13.2, Plt Count 227, MPV 10.9, Immature Gran % (Auto) 0.200, Neut % (Auto) 65.4, Lymph % (Auto) 21.5, [place] % (Auto) 8.5, Eos % (Auto) 3.9, Baso % (Auto) 0.5, Absolute Neuts (auto) 3.9, Absolute Lymphs (auto) 1.27, Nucleated RBC % 0, Sodium 141, Potassium 3.5, Chloride 113 H, Carbon Dioxide 25.0, Anion Gap 4 L, BUN 6 L, Creatinine 0.68, Estim Creat Clear Calc 108.79, Est GFR (MDRD) Af Amer 114, Est GFR (MDRD) Non-Af 95, BUN/Creatinine Ratio 8.8 L, Glucose 186 H, Calcium 8.4 L 02/22/24 05:42: POC Glucose 170 H Radiography Diagnostic Testing: Radiology Impression Abdomen/Pelvis CT 02/21/24 08:58 IMPRESSION: Redemonstration of acute diverticulitis in the sigmoid colon. When compared with 02/18/2024, the inflammation is slightly decreased. Amount pelvic free fluid. No free air or fluid collection. Trace bilateral pleural effusions with overlying atelectasis. Electronically Signed: Raza Cook MD at 13:54 EDT Reading Location ID and State: [facility] / [place] Tel , Service support , D/C Instructions Discharge Diet: Soft diet (low fiber) Call your doctor if you observe: Fever of 101 or Higher, Inability to have a bowel movement and Uncontrolled pain Please Follow Up With: Roland Briggs MD When: 2 weeks post hospital discharge Meaningful Use Info Meaningful Use Meaningful Use Diagnoses (Choose all that apply): None applicable Ischemic Stroke Statin Dosing Therapy Reference: STATIN DOSE THERAPY REFERENCE: * Patients > 75 years receive moderate or high dose statin therapy. * Patients 75 years or YOUNGER should receive HIGH intensity statin dose unless contraindicated. You will be required to document reason for non-treatment if statin daily dose does not meet guidelines. HIGH DOSE STATIN THERAPY DAILY Atorvastatin > than or = to 40 mg Rosuvastatin > than or = to 20 mg Amlodipine + Atorvastatin > than or = to 2.5/40 mg Ezetimibe + Simvastatin 10/80 mg Simvastatin 80mg Discharge Plan Admission Admit Date/Time: 02/19/24 00:12 Primary Reason for Your Visit: Acute diverticulitis Attending Provider: Roland Briggs Primary Care Provider: Ivan Florez Discharge Orders/Prescriptions Prescriptions: New amoxicillin-pot clavulanate 875-125 mg Tablet 1 tab PO BID 4 Days Qty: 8 0RF Continued gabapentin 600 mg tablet 600 mg PO TID lisinopril 2.5 mg tablet 2.5 mg PO DAILY rosuvastatin 20 mg tablet 20 mg PO DAILY insulin glargine [Lantus Solostar U-100 Insulin] 100 unit/mL (3 mL) insulin pen 84 unit subcut QHS Patient Comments: has been taking 60 units this week at night due to frequent hypoglycemic episodes at home as of 02/18 Humalog KwikPen Insulin 200 unit/mL (3 mL) insulin pen See Rx Instructions subcut .COMPLEX Protocol: 6. Sliding Scale Insulin Custom Condition: mg/dl range Dose/Route: Number of Units Protocol Text: Custom Sliding Scale Rx Instructions: subcutaneously ; 10 units breakfast (2-4 pm), 10 units lunch (8PM) and 12 units dinner; add 4 units to meal if high carb; up to 54 units total daily Mounjaro 10 mg/0.5 mL pen injector 10 mg subcut QWEEK omeprazole 20 MG capsule 20 mg PO DAILY Held Linzess 290 mcg capsule 290 mcg PO DAILY Hold Instructions: Resume on 03/01/24. continue stool softeners and laxative as needed Referrals / Follow Up: Ivan Florez MD [Primary Care Provider] - Disposition Disposition (needs filled in before D/C Order can be placed): Home, Self Care
[2024-02-22] MEDS: Amox/Clavulanate 875 MG Tablet PO (11:28)
[2024-02-22 11:53] LABS: Bedside Glucose 128 mg/dL (74-106)
[2024-02-22 14:20] VITALS: BP 138/62; PULSE 66; RESP 16; TEMP 36.7; O2SAT 100
== END 2024-02-22 15:26 | disposition home or self-care (01) | DRG 392 ==
LOC: ED 02-19 00:34 → MS3 02-19 00:35
PROVIDERS: Surgery; Admitting Provider Surgery; Emergency Provider Emergency Medicine; PCP Family Medicine; Visit Provider Surgery
DX: K57.20 Diverticulitis of large intestine with perforation and abscess without bleeding (principal); R16.0 Hepatomegaly, not elsewhere classified; E11.9 Type 2 diabetes mellitus without complications; E78.5 Hyperlipidemia, unspecified; F17.210 Nicotine dependence, cigarettes, uncomplicated; Z79.4 Long term (current) use of insulin; M79.7 Fibromyalgia; Z79.85 Long-term (current) use of injectable non-insulin antidiabetic drugs; Z87.442 Personal history of urinary calculi
CPT/HCPCS: 36415; 74177; 80048; 80076; 81001; 82947; 82962; 83605; 83690; 85025; 87086; 99284; 99406; J7030; Q9967; A4216; J2405